=== PATIENT | male | born 1940 | race Caucasian/White ===

== ENCOUNTER 2019-02-22 19:07 | Inpatient (IN) | payer OTHER ==
--- NOTE | 2019-02-22 19:24 | EDPHY ---
H & P Stated Complaint: COUGH 1 MONTH, NOW SOB, SENT FROM [facility] [place] ON O2 Time Seen by Provider: 02/22/19 19:23 HPI/ROS: CHIEF COMPLAINT: Shortness of breath, cough HISTORY OF PRESENT ILLNESS: The patient is a 78 y/o male with a history of atrial fibrillation, hypertension, diabetes who arrives complaining of worsening cough and shortness of breath over the last few days. He's had a persistent cough for the last 7-8 weeks. He went on a golf trip to [place] 4 days ago and returned last night. While there his cough worsened and he developed associated shortness of breath for the first time. The shortness of breath was distressing to the point that he stayed up all night to focus on breathing. These symptoms have persisted since returning home. He denies chest pain at any point. No fever, abdominal pain, urinary symptoms, vomiting, diarrhea, orthopnea. No history of CA. He went to urgent care for the shortness of breath this evening and was referred to the ED due to concern for hypoxemia. He reports while sitting in the waiting room at urgent care his SpO2 was briefly at 88% on one finger and 92% on the other finger so they sent him to the ED with a bottle of oxygen. He received a flu vaccination this season and is up-to-date on his Pneumovax. REVIEW OF SYSTEMS: A ten system review of systems was performed and is negative with the exception of the items mentioned in the HPI. Past medical history: 1. Atrial fibrillation - Eliquis 2. Hypertension 3. Diabetes - metformin, glipizide. A1C 6.8 1.5 weeks ago. 4. Kidney cancer - treated surgically 5. Saphenous vein clot 8-9 years ago Past surgical history: 1. Right partial nephrectomy 2. Appendectomy 3. Tonsillectomy Family history: Noncontributory Social history: at bedside. Lives in [place]. Retired. PCP: Dr. Nash. Snow Removal/Plowing: Dr. Marcial. General Appearance: Alert. Vital signs reviewed. Blood pressure 132/110, heart rate 117 at triage. Eyes: Pupils equal and round, no conjunctival injection, no discharge. Anicteric. ENT, Mouth: Mucous membranes are moist, no oropharyngeal erythema or edema. Neck: No lymphadenopathy, supple. Respiratory: Lungs are clear to auscultation; no wheezes, rales, or rhonchi. Cardiovascular: Irregularly irregular rate and rhythm; no murmur, rub, or gallop. Gastrointestinal: Abdomen is soft and nontender, no masses or organomegaly. Skin: Warm and dry, no rashes on exposed skin, normal color. Back: Nontender to palpation over the thoracolumbar spine. No CVAT. Extremities: Trace lower extremity edema bilaterally, no calf tenderness or swelling. Neurological: Alert and oriented. Moving all four extremities easily and equally. Psychiatric: Normal affect. - Personal History Current Tetanus/Diphtheria Vaccine: Yes Current Tetanus Diphtheria and Acellular Pertussis (TDAP): Yes - Medical/Surgical History Hx Asthma: No Hx Chronic Respiratory Disease: No Hx Diabetes: Yes Hx Cardiac Disease: Yes Hx Renal Disease: Yes Hx Cirrhosis: No Hx Alcoholism: No Hx HIV/AIDS: No Hx Splenectomy or Spleen Trauma: No Other PMH: HTN, D.M. A-FIB, KIDNEY REMOVED FOR CA - Social History Smoking Status: Never smoked Constitutional: Initial Vital Signs Temperature (C) 36.5 C 02/22/19 19:11 Heart Rate 117 H 02/22/19 19:11 Respiratory Rate 18 02/22/19 19:11 Blood Pressure 132/110 H 02/22/19 19:11 O2 Sat (%) 95 02/22/19 19:11 O2 Delivery Mode Room Air Allergies/Adverse Reactions: Penicillins Allergy (Verified 02/22/19 19:15) Home Medications: Medication Instructions Recorded Eplerenone [Inspra 25 MG (*)] 50 mg PO DAILY 10/05/16 Ezetimibe [Zetia 10 MG (*)] 10 mg PO Q2D 10/05/16 Hydrochlorothiazide [HCTZ (*)] 25 mg PO DAILY 10/05/16 Lisinopril [Zestril 20 mg (*)] 20 mg PO BID 10/05/16 Metoprolol Succinate [Toprol Xl] 50 mg PO BID 10/05/16 Omeprazole 20 mg PO DAILY 10/05/16 Rosuvastatin Calcium [Crestor 20mg 5 mg PO Q2D 10/05/16 (*)] Tamsulosin HCl [Flomax 0.4 MG (*)] 0.4 mg PO DAILY@1830 10/05/16 Verapamil ER [Calan SR/ER 240MG 240 mg PO HS 12/08/16 (*)] metFORMIN HCL [Metformin HCl] 1,000 mg PO BIDMEAL 10/05/16 Apixaban [Eliquis] 5 mg PO BID 02/22/19 glipiZIDE [Glipizide] 2.5 mg PO BIDMEAL 02/22/19 Medical Decision Making - Diagnostics EKG Interpretation: 12 lead EKG is interpreted in [place] by emergency department physician. Imaging: I viewed and interpreted images myself ED Course/Re-evaluation: Plan for IV, labs, UA, chest x-ray, EKG. Normal SpO2 on room air. Patient was ambulated with pulse ox in place and pulse oximetry remained in the low 90s. Patient's two view chest x-ray suggestive of airways disease. There is no infiltrate and I do not see evidence of pulmonary edema. He he has a BNP of 1710--not excessively high for his age. He has trace peripheral edema. This is not an overall picture of congestive heart failure. However he reports symptoms suggestive of heart failure, including PND and weight gain. I have not found evidence of pneumonia. Flu negative. However, the patient continues to be tachypneic with respiratory rate in the mid 20s to 30. His heart rate has been 100-120, atrial fibrillation. He tells me that he normally has a heart rate of 60-70 at home. He knows that he is in chronic atrial fibrillation. He takes his Eliquis and his verapamil as prescribed. He might need better rate control. He has had blood pressures in the 130s over 110-120. He has not yet had his evening medications, one of which is lisinopril which will be given to him here. I am trying to obtain a complete list of his medications and dosages. He states that his blood pressure is usually under better control than this, but he does not check it daily. 20 care troponin is normal. His EKG shows atrial fibrillation with an episode of unsustained V-tach. He is not having chest pain. It is not my impression that this is ischemia. Blood pressure improved during his stay in the emergency department. He is being admitted to the hospital for further evaluation, treatment, and cardiac monitoring. Differential Diagnosis: Shortness of breath including but not limited to pulmonary infectious process, COPD, asthma, pulmonary embolus and congestive heart failure. - Data Points Laboratory Results: Laboratory Results 02/22/19 19:50 02/22/19 19:50 Medications Given: Apixaban (Eliquis) 5 mg PO BID [facility] Stop: 08/25/19 08:59 Last Admin: 02/27/19 08:02 Dose: 5 mg Benzonatate (Tessalon Pearles) 100 mg PO TID PRN PRN Reason: Cough, Mild Stop: 08/21/19 23:23 Last Admin: 02/26/19 17:10 Dose: 100 mg Cetirizine HCl (Zyrtec) 10 mg PO HS [facility] Stop: 08/22/19 20:59 Last Admin: 02/26/19 19:55 Dose: 10 mg Clopidogrel Bisulfate (Plavix) 75 mg PO DAILY [facility] Stop: 08/25/19 08:59 Last Admin: 02/27/19 08:01 Dose: 75 mg Ezetimibe (Zetia) 10 mg PO Q2D [facility] Stop: 08/24/19 08:59 Last Admin: 02/27/19 08:01 Dose: 10 mg Eplerenone (Inspra) 50 mg PO DAILY [facility] Stop: 08/22/19 08:59 Last Admin: 02/27/19 08:11 Dose: 50 mg Fluticasone Propionate (Flonase Nasal [place]) 1 sprays [place] BID [facility] Stop: 08/21/19 23:29 Last Admin: 02/26/19 19:59 Dose: 1 spray Furosemide (Lasix) 20 mg PO DAILY [facility] Stop: 08/26/19 08:59 Last Admin: 02/27/19 08:02 Dose: 20 mg Glipizide (Glucotrol) 2.5 mg PO BIDMEAL [facility] Stop: 08/22/19 07:59 Last Admin: 02/27/19 08:01 Dose: 2.5 mg Guaifenesin (Mucinex) 600 mg PO BID PRN PRN Reason: Cough, Mild Stop: 08/22/19 08:59 Last Admin: 02/26/19 17:15 Dose: 600 mg Insulin Human Lispro (Humalog Lispro) 0 unit SC TIDMEAL [facility] PRN Reason: Protocol Stop: 08/23/19 11:59 Last Admin: 02/27/19 08:12 Dose: 1 units Metoprolol Succinate (Toprol Xl) 100 mg PO BID [facility] Stop: 08/25/19 20:59 Last Admin: 02/27/19 08:01 Dose: 100 mg Pantoprazole Sodium (Protonix) 40 mg PO DAILY [facility] Stop: 08/22/19 08:59 Last Admin: 02/27/19 08:01 Dose: 40 mg Rosuvastatin Calcium (Crestor) 5 mg PO Q2D [facility] Stop: 08/23/19 08:59 Last Admin: 02/26/19 08:41 Dose: 5 mg Tamsulosin HCl (Flomax) 0.4 mg PO DAILY@1830 [facility] Stop: 08/22/19 18:29 Last Admin: 02/26/19 17:10 Dose: 0.4 mg Discontinued Medications Apixaban (Eliquis) 5 mg PO BID [facility] Stop: 08/21/19 23:14 Last Admin: 02/24/19 09:49 Dose: Not Given Aspirin Buffered (Aspirin Ec) 325 mg PO ONCALL ONE Stop: 02/25/19 06:01 Last Admin: 02/25/19 09:02 Dose: 325 mg Clopidogrel Bisulfate (Plavix) 600 mg PO ONCE ONE Stop: 02/25/19 14:16 Last Admin: 02/25/19 14:42 Dose: 600 mg Diazepam (Valium) 5 mg PO ONCALL ONE Stop: 02/25/19 06:01 Last Admin: 02/25/19 15:34 Dose: Not Given Diphenhydramine HCl (Benadryl) 25 mg PO ONCALL ONE Stop: 02/25/19 06:01 Last Admin: 02/25/19 15:32 Dose: Not Given Famotidine (Pepcid) 20 mg PO ONCALL ONE Stop: 02/25/19 06:01 Last Admin: 02/25/19 15:32 Dose: Not Given Furosemide (Lasix Injection) 40 mg IVP ONCE ONE Stop: 02/23/19 13:41 Last Admin: 02/23/19 14:04 Dose: 40 mg Furosemide (Lasix Injection) 20 mg IVP ONCE ONE Stop: 02/26/19 08:06 Last Admin: 02/26/19 08:37 Dose: 20 mg Hydrochlorothiazide (Hydrochlorothiazide) 25 mg PO DAILY [facility] Stop: 08/22/19 08:59 Last Admin: 02/23/19 07:46 Dose: 25 mg Sodium Chloride (Ns) 1,000 mls @ 0 mls/hr IV ONCALL ONE PRN Reason: TKO Stop: 02/25/19 06:01 Last Admin: 02/25/19 15:33 Dose: Not Given Sodium Chloride (Ns) 1,000 mls @ 30 mls/hr IV ONCALL ONE Stop: 02/26/19 15:19 Last Admin: 02/25/19 15:33 Dose: Not Given Lisinopril (Zestril) 20 mg PO EDNOW ONE Stop: 02/22/19 21:26 Last Admin: 02/22/19 21:40 Dose: 20 mg Lisinopril (Zestril) 20 mg PO BID [facility] Stop: 08/22/19 08:59 Last Admin: 02/23/19 07:46 Dose: 20 mg Lisinopril (Zestril) 20 mg PO DAILY [facility] Stop: 08/23/19 08:59 Last Admin: 02/24/19 09:50 Dose: Not Given Metformin HCl (Glucophage) 1,000 mg PO BIDMEAL [facility] Stop: 08/22/19 07:59 Last Admin: 02/24/19 09:49 Dose: Not Given Metoprolol Succinate (Toprol Xl) 50 mg PO BID [facility] Stop: 08/21/19 23:14 Last Admin: 02/25/19 09:02 Dose: 50 mg Metoprolol Succinate (Toprol Xl) 50 mg PO BID [facility] Stop: 08/22/19 20:59 Last Admin: 02/24/19 01:35 Dose: Not Given Metoprolol Succinate (Toprol Xl) 75 mg PO BID [facility] Stop: 08/24/19 20:59 Last Admin: 02/26/19 08:39 Dose: 75 mg Metoprolol Tartrate (Lopressor Injection) 5 mg IVP ONCE ONE Stop: 02/26/19 13:11 Last Admin: 02/26/19 13:19 Dose: 5 mg Metoprolol Tartrate (Lopressor Injection) 5 mg IVP ONCE ONE Stop: 02/26/19 14:32 Last Admin: 02/26/19 14:43 Dose: 5 mg Metoprolol Tartrate (Lopressor) 25 mg PO ONCE ONE Stop: 02/26/19 14:32 Last Admin: 02/26/19 14:43 Dose: 25 mg Metoprolol Tartrate (Lopressor Injection) 5 mg IVP ONCE ONE Stop: 02/27/19 08:01 Last Admin: 02/27/19 08:11 Dose: 5 mg Potassium Chloride (Klor-Con) 20 meq PO ONCE ONE Stop: 02/27/19 07:39 Last Admin: 02/27/19 08:00 Dose: 20 meq Tamsulosin HCl (Flomax) 0.4 mg PO HS [facility] Stop: 08/21/19 23:14 Last Admin: 02/24/19 01:35 Dose: Not Given Verapamil HCl (Calan Sr) 240 mg PO HS [facility] Stop: 08/21/19 23:14 Last Admin: 02/22/19 23:33 Dose: 240 mg Verapamil HCl (Calan Sr) 240 mg PO HS [facility] Stop: 08/22/19 20:59 Last Admin: 02/23/19 20:39 Dose: 240 mg Verapamil HCl (Calan Sr) 120 mg PO [facility] Stop: 08/23/19 20:59 Last Admin: 02/25/19 20:34 Dose: 120 mg Point of Care Test Results: Chemistry 02/22/19 19:55 POC Troponin I 0.01 ng/mL ng/mL (0.00-0.08) Departure - Departure Disposition: [facility] Inpatient Acute Clinical Impression: Shortness of breath Atrial fibrillation Qualifiers: Atrial fibrillation type: chronic Qualified Code(s): I48.2 - Chronic atrial fibrillation Hypertension Qualifiers: Hypertension type: essential hypertension Qualified Code(s): I10 - Essential ( primary) hypertension Condition: Fair Report Scribed for: Italia Cook Report Scribed by: Vika Sotelo Date of Report: 02/22/19 Time of Report: 19:27 Physician Review and Approval Statement: 02/22/19 19:24 Portions of this note were transcribed by the biomedical engineering professor. I, Dr. Italia Cook, personally performed the history, physical exam, and medical decision- making; and confirmed the accuracy of the information in the transcribed note.
[2019-02-22 20:13] LABS: PLATELET COUNT 181 10^3/uL (150-400)
[2019-02-22 20:21] LABS: INR 1.11 (0.83-1.16); PROTIME(PATIENT) 13.9 SEC (12.0-15.0)
[2019-02-22] MEDS ORDERED: LISINOPRIL 20 MG TAB PO ONE (21:25)
[2019-02-22] MEDS ORDERED: ACETAMINOPHEN 325 MG TAB PO PRN (21:28)
[2019-02-22] MEDS ORDERED: ONDANSETRON 4 MG/2 ML VIAL IVP PRN (21:28)
[2019-02-22] MEDS ORDERED: ONDANSETRON DISINTEGRATING 4 MG TAB PO PRN (21:28)
[2019-02-22] MEDS ORDERED: ALBUTEROL 3 ML DEYVIAL IH PRN (22:34)
[2019-02-22] MEDS ORDERED: VERAPAMIL ER 240 MG TAB PO SCH (23:15)
[2019-02-22] MEDS: APIXABAN 5 MG TAB PO SCH (23:33)
[2019-02-22] MEDS: METOPROLOL SUCCINATE XR 50 MG TAB PO SCH (23:33)
[2019-02-22] MEDS: TAMSULOSIN HCL 0.4 MG CAP PO SCH (23:33)
[2019-02-22] MEDS: FLUTICASONE NASAL 120 SPRAYS/16 GM MDI EACHNARE SCH (23:49)
--- NOTE | 2019-02-23 00:11 | PDGENHP ---
History and Physical - Chief Complaint Shortness of breath, cough - History of Present Illness Source-patient provides history and appears reliable. EMR reviewed and case discussed with accepting hospitalist. HPI - Patient is a pleasant 78M with pmhx significant for chronic atrial fibrillation on eliquis, HTN, HLD, BPH, DM II who presents to the ED today from Urgent care with complaints of SOB and cough. Patient reports a 7-8 week history of nonproductive cough and some shortness of air. Patient denies any chest pain, palpitations or pleuritic chest pain. He does note some postnasal drainage and "rattling" occasionally in his chest. He denies any fevers/ chills. no sore throat. No sick contacts. he notes occasional hiccups that resolve quickly but occurs up to 3 times daily. Patient reports a similar history 1 year ago for which his PCP treated him with anti-tussive medications. He was also given an inhaler of some kind but reports he developed some throat numbness. Patient reports some concern for approximately 10 lb weight gain since the beginning of the year. He denies any LE edema, no orthopnea, no PND. He notes his abdomen appears to be persistently larger. He also notes declined activity over the course of the winter due to some shoulder pain for which he has been undergoing physical therapy. He has increasing activity with golfing and just recently returned from [place] and notes he noticed this weight gain. At the urgent care clinic patient was noted to have a nonsustained episode of hypoxia to 88% on RA but did improve to > 90%. patient referred to ED for further evaluation. History Information - Allergies/Home Medication List Allergies/Adverse Reactions: Penicillins Allergy (Verified 02/22/19 19:15) Home Medications: Eplerenone [Inspra 25 MG (*)] 50 mg PO DAILY 10/05/16 [Last Taken 02/22/19] Ezetimibe [Zetia 10 MG (*)] 10 mg PO Q2D 10/05/16 [Last Taken Unknown] Hydrochlorothiazide [HCTZ (*)] 25 mg PO DAILY 10/05/16 [Last Taken 02/22/19] Lisinopril [Zestril 20 mg (*)] 20 mg PO BID 10/05/16 [Last Taken 02/22/19 09:00] Metoprolol Succinate [Toprol Xl] 50 mg PO BID 10/05/16 [Last Taken 02/22/19 09: 00] Omeprazole 20 mg PO DAILY 10/05/16 [Last Taken 02/22/19] Rosuvastatin Calcium [Crestor 20mg (*)] 5 mg PO Q2D 10/05/16 [Last Taken Unknown ] Tamsulosin HCl [Flomax 0.4 MG (*)] 0.4 mg PO DAILY@1830 10/05/16 [Last Taken ] Verapamil ER [Calan SR/ER 240MG (*)] 240 mg PO HS 10/05/16 [Last Taken 02/21/19] metFORMIN HCL [Metformin HCl] 1,000 mg PO BIDMEAL 10/05/16 [Last Taken 02/22/19 09:00] Apixaban [Eliquis] 5 mg PO BID 02/22/19 [Last Taken 02/22/19 09:00] glipiZIDE [Glipizide] 2.5 mg PO BIDMEAL 02/22/19 [Last Taken 02/22/19 09:00] I have personally reviewed and updated: family history, medical history, social history, surgical history - Past Medical History Additional medical history: HTN, HLD, chronic afib on eliquis, DM II, kidney cancer s/p partial nephrectomy. squamous cell carcinoma scalp, ear, legs. saphenous vein clot 2010. - Surgical History Additional surgical history: partial nephrectomy on right, T&A - Family History Additional family history: father, brother with CAD. brother with CVA. mother - cancer. - Social History Smoking Status: Never smoked Alcohol Use: None Drug Use: None Additional social history: Patient is and lives with . Review of Systems Review of Systems: ROS: 10pt was reviewed & negative except for what was stated in HPI & below Constitutional: Reports: no symptoms, other (weight gain over winter 10 lbs). Denies: chills, fever EENMT: Reports: other (+ postnasal gtt.). Denies: mouth swelling, nose congestion, sore throat Cardiac: Reports: no symptoms. Denies: edema, lightheadedness, palpitations Respiratory: Reports: cough, shortness of breath. Denies: wheezing Gastrointestinal: Reports: no symptoms Genitourinary: Reports: no symptoms Muscolosketal: Reports: joint pain (left shoulder pain) Skin: Reports: lesions (left ear post excision. ). Denies: rash Neurological: Reports: no symptoms Hematologic/Lymphatic: Reports: no symptoms Physical Exam Physical Exam: Selected Entries 02/22/19 19:11 Blood Pressure Automatic Method Heart Rate 117 H Respiratory 18 Rate O2 Sat (%) 95 Temperature (C) 36.5 C Blood Pressure 132/110 H Mean Arterial 117 H Pressure (MAP) O2 Delivery Room Air Mode Temperature Oral Source Temp Pulse Resp BP Pulse Ox 37.0 C 99 20 147/99 H 94 02/22/19 23:08 02/22/19 23:08 02/22/19 23:08 02/22/19 23:08 02/22/19 23:08 Constitutional: no apparent distress, appears nourished, other (NAD. pleasant adult male is laying reclined in bed awake. at bedside. patient in good spirits.) Eyes: PERRL, anicteric sclera, EOMI, No scleral injection Ears, Nose, Mouth, Throat: moist mucous membranes, other (no nasal discharge. no oropharangeal erythema or exudates. ), No poor dentition Cardiovascular: irregularly irregular, tachycardia, No edema Peripheral Pulses: 2+: dorsalis-pedis (R), dorsalis-pedis (L) Respiratory: no respiratory distress, no rales or rhonchi, clear to auscultation , reduced air movement (diminished air movement bibasilar L>R. ), other ( ocassional cough.), No expiratory wheeze, No inspiratory crackles, No respiratory distress Gastrointestinal: normoactive bowel sounds, soft, non-tender abdomen, no palpable masses, ascites, other (obese abdomen), No guarding, No rebound Genitourinary: no bladder tenderness, No parker in urethra Skin: warm, normal color, no rashes or abrasions, No rash Musculoskeletal: full muscle strength, no muscle tenderness, pain with ROM ( left shoulder), No generalized weakness Neurologic: AAOx3, sensation intact bilaterally, other (grossly nonfocal. ), No facial droop Psychiatric: interacting appropriately, not anxious, not encephalopathic, thought process linear Lab Data & Imaging Review 02/22/19 19:50 02/22/19 19:50 WBC 8.41 10^3/uL (3.80-9.50) 02/22/19 19:50 RBC 5.00 10^6/uL (4.40-6.38) 02/22/19 19:50 Hgb 14.5 g/dL (13.7-17.5) 02/22/19 19:50 Hct 43.9 % (40.0-51.0) 02/22/19 19:50 MCV 87.8 fL (81.5-99.8) 02/22/19 19:50 MCH 29.0 pg (27.9-34.1) 02/22/19 19:50 MCHC 33.0 g/dL (32.4-36.7) 02/22/19 19:50 RDW 15.0 % (11.5-15.2) 02/22/19 19:50 Plt Count 181 10^3/uL (150-400) 02/22/19 19:50 MPV 11.1 fL (8.7-11.7) 02/22/19 19:50 Neut % (Auto) 80.7 % (39.3-74.2) H 02/22/19 19:50 Lymph % (Auto) 6.7 % (15.0-45.0) L 02/22/19 19:50 Schley % (Auto) 9.0 % (4.5-13.0) 02/22/19 19:50 Eos % (Auto) 3.0 % (0.6-7.6) 02/22/19 19:50 Baso % (Auto) 0.2 % (0.3-1.7) L 02/22/19 19:50 Nucleat RBC Rel Count 0.0 % (0.0-0.2) 02/22/19 19:50 Absolute Neuts (auto) 6.79 10^3/uL (1.70-6.50) H 02/22/19 19:50 Absolute Lymphs (auto) 0.56 10^3/uL (1.00-3.00) L 02/22/19 19:50 Absolute Monos (auto) 0.76 10^3/uL (0.30-0.80) 02/22/19 19:50 Absolute Eos (auto) 0.25 10^3/uL (0.03-0.40) 02/22/19 19:50 Absolute Basos (auto) 0.02 10^3/uL (0.02-0.10) 02/22/19 19:50 Absolute Nucleated RBC 0.00 10^3/uL (0-0.01) 02/22/19 19:50 Immature Gran % 0.4 % (0.0-1.1) 02/22/19 19:50 Immature Gran # 0.03 10^3/uL (0.00-0.10) 02/22/19 19:50 RBC/WBC/PLT Morphology TNP 02/22/19 19:50 Platelet Estimate TNP 02/22/19 19:50 PT 13.9 SEC (12.0-15.0) 02/22/19 19:50 INR 1.11 (0.83-1.16) 02/22/19 19:50 APTT 33.5 SEC (23.0-38.0) 02/22/19 19:50 Sodium 137 mEq/L (135-145) 02/22/19 19:50 Potassium 3.7 mEq/L (3.5-5.2) 02/22/19 19:50 Chloride 103 mEq/L (97-110) 02/22/19 19:50 Carbon Dioxide 22 mEq/l (22-31) 02/22/19 19:50 Anion Gap 12 mEq/L (6-14) 02/22/19 19:50 BUN 26 mg/dL (7-23) H 02/22/19 19:50 Creatinine 1.4 mg/dL (0.7-1.3) H 02/22/19 19:50 Estimated GFR 49 02/22/19 19:50 Glucose 119 mg/dL (70-100) H 02/22/19 19:50 Calcium 9.7 mg/dL (8.5-10.4) 02/22/19 19:50 POC Troponin I 0.01 ng/mL (0.00-0.08) 02/22/19 19:55 NT-Pro-B Natriuret Pep 1710 pg/mL (0-450) H 02/22/19 19:50 Nasal Influenza A PCR NEGATIVE FOR FLU A (NEGATIVE) 02/22/19 19:50 Nasal Influenza B PCR NEGATIVE FOR FLU B (NEGATIVE) 02/22/19 19:50 Imaging Review: PA and Lateral Chest Clinical Indications: Shortness of breath and cough x2 months in a 78-year- old male Comparison: August 2013. Findings: No focal pulmonary consolidation is identified. Peribronchial thickening is noted. Minimal basilar opacities are identified which are probably atelectasis. There is hyperexpansion with flattening of the hemidiaphragms noted. The heart size and pulmonary vascularity are normal. Pleural surfaces and bony thorax are negative for acute abnormality. Impression: Findings consistent with airways disease with no superimposed acute abnormality identified. Dictated By: Kevin Douglas MD Visualized and Interpreted Chest x-ray results: Yes Chest X-Ray results: no infiltrate, other (atelectasis, peribronchiolar thickening. ) Visualized and Interpreted EKG results: Yes EKG additional interpertation: atrial fibrillation, LBBB, q waves inferior leads. Assessment & Plan Assessment: Patient is a pleasant 78M with pmhx significant for chronic atrial fibrillation on eliquis, HTN, HLD, BPH, DM II who presents to the ED today from Urgent care with complaints of SOB and cough. #SOB - patient currently on room air without additional episodes of hypoxia. Likely related to atelectasis and bronchitis. rapid flu negative but no evidence of infectious process. exertional RA challenge before discharge and tonight's plan as noted below. suspect related to postnasal gtt and bronchitis. Flu negative. Patient reports he is concerned for possible CHF. no orthopnea or LE edema. Patient notes a 10 lb weight gain but clarified this has been gradual over winter months and in the last several weeks up to 5 lbs. Patient did recently return to elevation. after discussion with patient will obtain echocardiogram in AM. He denies any chest pain and notes that he had a nuclear stress test [address] Marcial. bnp slightly elevated however pt in Afib with HR 100s-130s and BPs slightly elevated. resume patient home mediations for BP and rate control. #Cough - evidence of airway disease with bronchiolar thickening and atelectasis present. Given patient history and similar presentation last year concern for postnasal gtt and allergic rhinitis. Patient will have anti-tussives available prn, flonase and zyrtec has been ordered. Patient notes he had throat numbness/ tightening with an "inhaler" will try to review patient outpatient chart and update allergy list. #hypoxia - currently saturating well on RA. plan as noted above. continuous pulse ox. incentive spirometry. #chronic Atrial fibrillation - patient HR slightly elevated. He denies any chest pain. #benign essential Hypertension chronic - DBP particularly elevated. patient's home medications will be resumed now including metoprolol, verapamil. Chronic medical issues #DM II - resume glipizide and metformin. #HLD - continue statin #BPH - continue flomax #CKD stage 3 - at baseline. #GERD - continue ppi FEN - SLIV. tolerating PO well. electrolytes adequate. cardiac diet. PPX - on eliquis. COR - FULL Dispo - Patient admitted to observation status pending echo and reassessment in AM.
[2019-02-23] MEDS: glipiZIDE 5 MG TAB PO SCH ×2 (07:40→17:29)
[2019-02-23] MEDS: PANTOPRAZOLE SODIUM 40 MG TAB PO SCH (07:40)
[2019-02-23] MEDS: metFORMIN HCL 500 MG TAB PO SCH ×2 (07:40→17:29)
[2019-02-23] MEDS: APIXABAN 5 MG TAB PO SCH ×2 (07:40→20:39)
[2019-02-23] MEDS: METOPROLOL SUCCINATE XR 50 MG TAB PO SCH ×2 (07:45→20:38)
[2019-02-23] MEDS: EPLERENONE 25 MG TAB PO SCH (07:46)
[2019-02-23] MEDS: FLUTICASONE NASAL 120 SPRAYS/16 GM MDI EACHNARE SCH ×2 (07:47→20:39)
[2019-02-23] MEDS: guaiFENesin 600 MG TAB.ER PO PRN ×2 (07:57→20:51)
[2019-02-23] MEDS: BENZONATATE 100 MG CAP PO PRN ×2 (07:57→20:52)
[2019-02-23] MEDS ORDERED: HYDROCHLOROTHIAZIDE 25 MG TAB PO SCH (09:00)
[2019-02-23] MEDS ORDERED: LISINOPRIL 20 MG TAB PO SCH (09:00)
--- NOTE | 2019-02-23 11:30 | ECHO ---
[email or web address] [address] [address] Main: [phone] Echocardiography Examination Transthoracic Name: YOHANA BECKMAN MR#: [id number] Study Date: 02/23/2019 Study Time: 09:42 AM Date of : 1940 Age: 78 year(s) Height: 180.3 cm (71 in.) Weight: 89.81 kg (198 lb.) BSA: 2.1 m2 Gender: Male Examination: Echo Contrast: Image Quality: Adequate Rhythm: Heart Rate: BP: 117 mmHg/75 mmHg Indication: Shortness of breath, Atrial Fibrillation Procedure Staff Referring Physician: Lawyer Real Estate: Nilda Barnes [facility] Reading Physician: Thierry Pinto MD Requesting Provider: Ordering Physician: Scarlett Crawford Indication: Shortness of breath, Atrial Fibrillation Measurements Chambers AV/MV Label Value Normal Value Label Value Normal Value LVOTd 2.1 cm (1.9cm - 2.1cm) AV PGmax 7 mmHg LVOT VTI 14.8 cm (18cm - 22cm) AV PGmean 5 mmHg LVDd, 2D 4.8 cm (4.2cm - 5.9cm) AV Vmax 1.29 m/s LVDs, 2D 3.9 cm (2.1cm - 4cm) HAIR (VTI) 1.9 cm2 IVSd, 2D 1.2 cm (0.6cm - 1.1cm) MV E Vmax 1.03 m/s LVPWd, 2D 1.2 cm (0.6cm - 1cm) MV DT 169 ms LVEF, 2D 40 % (54% - 74%) MV PHT 0.05 s LVOT PGmean 2 mmHg MVA PHT 4.7 cm2 LVOT Vmean 0.71 m/s MR Reg. Volume 75 ml RVDd, 2D 3.9 cm (1.9cm - 3.8cm) MR Vmax 4.51 m/s LA Volume, BP 124 ml (18ml - 58ml) MR VTI 138 cm LADs, 2D 4.5 cm (3cm - 4cm) MR (ERO) 0.54 cm2 LAESV index, BP 59 ml/m2 MR PISA Radius 1 cm RA Area 25.5 cm2 MR PISA Alias V. 38.5 cm/s Additional Vessels MV PHT 47 ms Label Value Normal Value TV/PV AoAsc 3.5 cm Label Value Normal Value AoRoot, 2D 3.6 cm (1.4cm - 2.6cm) RA Pressure 15 mmHg IVC 2.4 cm (1.2cm - 2.3cm) RVSP 47 mmHg Patient: YOHANA BECKMAN Study Date: 02/23/2019 Page 1 of 3 09:42 AM TR Pmax 32 mmHg TR Vmax 2.82 m/s PV PGmax 2 mmHg PV Vmax, Caliper 0.71 m/s (0.6m/s - 0.9m/s) Conclusions Left Ventricle: Mildly reduced systolic left ventricular function. EF range is estimated at 45 % - 50 %. Mild global hypokinesis. Echogenicity seen in LV most likely consistent with prominent trabeculation; cannot rule out apical thrombus (consider Definity contrasted echo study for better definition). Mitral Valve: Moderate to severe mitral regurgitation. Tricuspid Valve: Pulmonary artery pressure is mildly increased. Findings Left Ventricle: Left ventricle is normal in size. Mildly reduced systolic left ventricular function. EF range is estimated at 45 % - 50 %. There is mild concentric left ventricular hypertrophy. Mild global hypokinesis. Echogenicity seen in LV most likely consistent with prominent trabeculation; cannot rule out apical thrombus (consider Definity contrasted echo study for better definition). Right Ventricle: Normal size right ventricle. Right ventricular systolic function is normal. Left Atrium: The left atrium is severely dilated. Right Atrium: The right atrium is moderately dilated. Mitral Valve: Mitral valve appears structurally normal. Moderate to severe mitral regurgitation. No mitral valve stenosis. Aortic Valve: Aortic leaflets are structurally normal. Trivial aortic regurgitation is present. There is no aortic stenosis. Aortic leaflets exhibit calcification. Tricuspid Valve: Tricuspid valve leaflets are structurally normal. Moderate tricuspid regurgitation. No tricuspid valve stenosis. Right Ventricular systolic pressure is measured at 47 mmHg. Pulmonary artery pressure is mildly increased. Pulmonic Valve: Pulmonic leaflets are normal in appearance. Mild pulmonic valve regurgitation is present. Aorta: The aortic root size in 2D measures 3.6 cm. The ascending aorta measures 3.5 cm. Aorta Measurements AoRoot, 2D is 3.6 cm. IVC: The inferior vena cava is mildly dilated. Exam Details Procedure Ordered: Echo Procedure Status: Routine study Image Quality: Adequate Facility Location: Bedside Patient: YOHANA BECKMAN Study Date: 02/23/2019 Page 2 of 3 09:42 AM (No Signature Object) Patient: YOHANA BECKMAN Study Date: 02/23/2019 Page 3 of 3 09:42 AM [id number]
--- NOTE | 2019-02-23 11:40 | ASMTCMCOM ---
CM Note CM Note Notes: Reviewed chart. Pt admitted for new onset of shortness of breath and worsening cough x 7-8 weeks. History includes afib, HTN, DM type II, kidney CA with partial nephrectomy, saphenous vein blood clot, BPH, HLD, squamous cell carcinoma. Pt is and lives with his in [place]. He is retired and plays golf 4 days/week. Per morning rounds, several diagnostic tests are pending. Discharge needs remain unclear at this time. Anticipate pt will likely discharge home independently with family support when medically stable. CM will continue to follow for any potential needs. Discharge Plan: To be determined, likely independent Date Signed: 02/23/2019 11:13 AM Electronically Signed By:June Meza RN
[2019-02-23] MEDS ORDERED: PERFLUTREN LIPID MICROSPHERES 1.1 MG/ML VIAL IV ONE (12:30)
--- NOTE | 2019-02-23 13:12 | ECHO ---
[email or web address] [address] [address] Main: [phone] Echocardiography Examination Transthoracic Name: YOHANA BECKMAN MR#: [id number] Study Date: 02/23/2019 Study Time: 12:38 PM Date of : 1940 Age: 78 year(s) Height: ( ) Weight: ( ) BSA: Gender: Male Examination: Limited Echo with Definity Contrast: 0.330 mg I.V. dose of Definity was administered Image Quality: Adequate Rhythm: Heart Rate: BP: 129 mmHg/92 mmHg Indication: Eval LV Procedure Staff Referring Physician: Offset Printer: Nilda Barnes RDCS Reading Physician: Thierry Pinto MD Requesting Provider: Ordering Physician: Nilda Olea Indication: Eval LV Conclusions Left Ventricle: Mildly reduced systolic left ventricular function. No evidence of LV thrombus. Findings Left Ventricle: Mildly reduced systolic left ventricular function. EF range is estimated at 45 % - 50 %. No evidence of LV thrombus. Exam Details Procedure Ordered: Limited Echo with Definity Procedure Status: Routine study Image Quality: Adequate Contrast: 0.330 mg I.V. dose of Definity was administered Intravenous contrast was administered to opacify the left ventricle Contrast Lot#: [id number] Facility Location: Bedside Patient: YOHANA BECKMAN Study Date: 02/23/2019 Page 1 of 2 12:38 PM (No Signature Object) Patient: YOHANA BECKMAN Study Date: 02/23/2019 Page 2 of 2 12:38 PM [id number]
[2019-02-23] MEDS ORDERED: FUROSEMIDE 40 MG/4 ML VIAL IVP ONE (13:40)
--- NOTE | 2019-02-23 13:48 | HOSPPROG ---
Hospitalist Progress Note Assessment/Plan: # SOB - likely d/t MR and mild sCHF - resp pcr pending # sCHF with acute exacerbation - etiology CAD vs viral CM vs a-fib vs MR - lasix 40 IV x 1 - already on BB (could change to coreg), lisino and eplerenone - cards consult for further w/u # mod-severe MR - cards consult - may need CHRISTINA - diuresis as above # htn - hold hctz with lasix - hold pm dose of lisino # a-fib - cont eliquis, metop and verapamil Subjective: still SOB when lying flat Objective: Vital Signs Temp Pulse Resp BP Pulse Ox 36.4 C 72 16 129/92 H 97 02/23/19 11:15 02/23/19 11:15 02/23/19 11:15 02/23/19 11:15 02/23/19 11:15 02/22/19 02/23/19 02/24/19 05:59 05:59 05:59 Intake Total 500 Balance 500 PT 13.9 SEC (12.0-15.0) 02/22/19 19:50 INR 1.11 (0.83-1.16) 02/22/19 19:50 chart reviewed discussed with dr hunt - Physical Exam Constitutional: no apparent distress, appears nourished Cardiovascular: regular rate and rhythym, no murmur, rub, or gallop Respiratory: no respiratory distress, no rales or rhonchi Gastrointestinal: soft, non-tender abdomen, no palpable masses, No guarding, No rebound, No distension ICD10 Worksheet Patient Problems: Problems Problem Status Onset Atrial flutter by electrocardiogram Acute Atrial fibrillation Acute Hypertension Acute
--- NOTE | 2019-02-23 16:08 | PDMN ---
Medical Necessity Medical necessity: MCG: Heart failure M190 A-2 days: Dyspnea (above baseline ) that persists despite emergency department and observation care treatment. 78yo M with acute exacerbation -SOB at rest, likely r/t mod-sever MG noted on echo cardiology consult pend. additional Lasix and further monitoring needed. pt with afib-, elevated BNP(1710) , HTN, (132/110) HR 117,. CXR show findings consistent with airway disease. status changed to INPT 02/23/19 for ongoing med nec care > 2 MN req further monitoring and tx of above.
[2019-02-23] MEDS: TAMSULOSIN HCL 0.4 MG CAP PO SCH (17:31)
[2019-02-23] MEDS: CETIRIZINE 10 MG TAB PO SCH (20:38)
[2019-02-23] MEDS ORDERED: VERAPAMIL ER 240 MG TAB PO SCH (21:00)
[2019-02-23] MEDS ORDERED: METOPROLOL SUCCINATE XR 50 MG TAB PO SCH (21:00)
--- NOTE | 2019-02-23 23:47 | CPEKG ---
Test Reason : OPEN Blood Pressure : / mmHG Vent. Rate : 113 BPM Atrial Rate : 108 BPM P-R Int : 086 ms QRS Dur : 132 ms QT Int : 373 ms P-R-T Axes : 000 -47 067 degrees QTc Int : 512 ms Atrial fibrillation Ventricular tachycardia, unsustained Aberrant conduction of SV complex(es) Left bundle branch block Confirmed by Arik Solis ([id number]) on 02/23/2019 11:47:35 PM Referred By: ARIK SOLIS Confirmed By:Arik Solis
[2019-02-24] MEDS: TAMSULOSIN HCL 0.4 MG CAP PO SCH ×2 (01:35→18:16)
[2019-02-24 08:11] LABS: PLATELET COUNT 171 10^3/uL (150-400)
[2019-02-24] MEDS ORDERED: LISINOPRIL 20 MG TAB PO SCH (09:00)
[2019-02-24] MEDS ORDERED: D50W 25 GM/50 ML SYR IVP PRN (09:47)
[2019-02-24] MEDS: metFORMIN HCL 500 MG TAB PO SCH (09:49)
[2019-02-24] MEDS: APIXABAN 5 MG TAB PO SCH (09:49)
--- NOTE | 2019-02-24 09:49 | HOSPPROG ---
Hospitalist Progress Note Assessment/Plan: # sCHF with acute exacerbation - etiology CAD vs viral CM vs a-fib vs MR - already on BB (could change to coreg), eplerenone - hold lisino today # mod-severe MR - likely CHRISTINA tomorrow, possible RHC/LHC # MARLEN vs CKD - will hold lisino today with slightly low BPs # htn - hold hctz today - hold lisino, cont verapimil, metop # a-fib - hold eliquis, cont metop and verapamil # DM2 - hold metformin as he may get contrast, start SSI Subjective: breathing better today after lasix Objective: Vital Signs Temp Pulse Resp BP Pulse Ox 36.7 C 70 16 118/78 96 02/24/19 07:38 02/24/19 07:38 02/24/19 07:38 02/24/19 07:38 02/24/19 07:38 Microbiology 02/23/19 Unknown Respiratory Panel (PCR) - Final Nasal, Sinus - Swab No Organism Detected By Pcr Laboratory Results 02/24/19 07:40 02/24/19 07:40 02/23/19 02/24/19 02/25/19 05:59 05:59 05:59 Intake Total 200 Output Total 3975 Balance -3775 PT 13.9 SEC (12.0-15.0) 02/22/19 19:50 INR 1.11 (0.83-1.16) 02/22/19 19:50 tele personally reviewed discussed with Mayo S - Physical Exam Constitutional: no apparent distress, appears nourished Cardiovascular: no murmur, rub, or gallop, irregularly irregular Respiratory: no respiratory distress, no rales or rhonchi, clear to auscultation Gastrointestinal: soft, non-tender abdomen, no palpable masses, No guarding, No rebound ICD10 Worksheet Patient Problems: Problems Problem Status Onset Atrial flutter by electrocardiogram Acute Atrial fibrillation Acute Hypertension Acute
[2019-02-24] MEDS ORDERED: TEMAZEPAM 15 MG CAP PO PRN (10:40)
[2019-02-24] MEDS: glipiZIDE 5 MG TAB PO SCH ×2 (10:55→18:18)
[2019-02-24] MEDS: ROSUVASTATIN CALCIUM 10 MG TAB PO SCH (10:56)
[2019-02-24] MEDS: EPLERENONE 25 MG TAB PO SCH (10:56)
[2019-02-24] MEDS: PANTOPRAZOLE SODIUM 40 MG TAB PO SCH (10:57)
[2019-02-24] MEDS: METOPROLOL SUCCINATE XR 50 MG TAB PO SCH ×2 (10:58→21:15)
[2019-02-24] MEDS: FLUTICASONE NASAL 120 SPRAYS/16 GM MDI EACHNARE SCH ×2 (10:59→21:15)
--- NOTE | 2019-02-24 13:16 | GCON ---
[f rep st] CONSULTATION CARDIOLOGY CONSULTATION INDICATION FOR CARDIOLOGY CONSULTATION: Worsening mitral regurgitation, shortness of breath, reduction in ejection fraction. REQUESTING PHYSICIAN FOR CONSULTATION: Dr. Shaikh of Hospitalist services. HISTORY OF PRESENT ILLNESS: The patient is a 78-year-old male who is well known to our practice. He is followed by Dr. Alfredo Marcial. He has significant history that includes permanent atrial fibrillation, hypertension, hyperlipidemia , and diabetes. The patient reports he had been feeling well until approximately 2 months ago, in which he started having a nonproductive cough. He is reporting no other significant symptoms with this, and had not noticed much. He did mention he did see his PCP who tried him on some over-the- counter medications, which seemed to help. He does state approximately 7 days ago, reporting while in [place] for a golf trip, he did note that his cough was much worse, and later that evening, he found that he became more short of breath, especially with exertion. He was able to come back [place] , and reporting by Sunday night his coughing and shortness of breath had worsened so much, he felt he needed to be further evaluated in came to [facility] Emergency Department for evaluation. He reports no fevers, chills, or night sweats. He denies of any chest pain or pressure. Upon arrival, an electrocardiogram was done which noted atrial fibrillation with rapid ventricular response, ventricular rate 113 BPM. He was also noted to have left bundle branch block. A chest x-ray was also done which was consistent with airway disease with no superimposed acute abnormalities identified. Laboratories were drawn, which noted elevated BNP of 1710. He was negative for influenza A and B. The patient did report orthopnea, and was treated with IV Lasix. He did undergo echocardiogram the following day in which he was noted to have a mildly reduced EF of 45% to 50% with mild global hypokinesis. There was a question about potential thrombus, and Definity study was done which ruled that out. He was also noted to have moderate to severe MR, moderate TR with an RVSP elevation of 47 mmHg. As of today, he reports his shortness of breath has significantly improved with diuretic therapy. He denies any chest pain or pressure. On continuous desk monitor, his heart rate is better controlled, with ventricular rates running in the 70s and 80s. He was noted at night to have bradycardia down to 40 beats per minute, which he was asymptomatic for. He denies any lightheadedness, palpitations, near-syncope or syncopal events. Reporting no symptoms suggestive of TIA or CVA. Besides cough , no recent fevers, chills, or night sweats. Patient with significant cardiac risk factors that include age, hypertension, hyperlipidemia, diabetes, and family history of coronary artery disease, reporting Father with first cardiac event in his early 50s. PAST MEDICAL HISTORY: Includes hypertension, hyperlipidemia , permanent atrial fibrillation, type 2 diabetes, history of kidney cancer status post partial nephrectomy, chronic renal insufficiency with baseline creatinine at 1.3, squamous cell carcinoma of the scalp, ears, legs. Saphenous vein clot in 2010. SURGICAL HISTORY: Includes partial nephrectomy on the right, tonsils and adenoids, and previous attempted CHRISTINA cardioversions. FAMILY HISTORY: Positive for coronary artery disease for both brother and Father, reporting Father had his first event when he was in his 50s. 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 He is and lives with his . He reports no smoking. Denies any alcohol use. Denies any illicit drug use. ALLERGIES: Penicillin. HOME MEDICATIONS: Glipizide 2.5 mg p.o. twice daily. Lisinopril 20 mg p.o. twice daily. Verapamil ER 240 mg p.o. at bedtime. Rosuvastatin 5 mg p.o. every 2 days. Zetia 10 mg p.o. every 2 days. Flomax 0.4 mg p.o. daily. Hydrochlorothiazide 25 mg p.o. daily. Inspra 50 mg p.o. daily. Omeprazole 20 mg p.o. daily. Metoprolol succinate 50 mg p.o. twice daily. Metformin 1000 mg p.o. twice daily. Eliquis 5 mg p.o. twice daily. REVIEW OF SYSTEMS: A 10-point review of systems done on patient, all negative except as mentioned above. PHYSICAL EXAMINATION: GENERAL APPEARANCE: Medium built, well-groomed, male. He is alert and oriented to person, place, time, and situation. Appears to be under no acute distress. CURRENT VITAL SIGNS: blood pressure of 118/78, heart rate of 70 saturating 96% on room air, respirations 16 , temperature 36.7 degrees Celsius. HEENT: Head is normocephalic. Lips and tongue are pink and moist with no signs of cyanosis. Conjunctivae pink. NECK: Trachea is midline, +2 carotid pulses bilateral. No auscultated bruits, no jugular vein distention. RESPIRATORY: Lungs are clear to auscultation. No rhonchi, rales or wheezes. No accessory muscle use, no intercostal muscle retraction noted. CARDIAC: Regular rate, irregular rhythm, S1, S2, 2/6 systolic murmur noted along the left sternal border. ABDOMEN: Soft, nontender , bowel sounds x4 quadrants. No organomegaly. No palpable masses. SKIN: [place] , warm, dry, no cyanosis, no clubbing, no peripheral edema. VASCULAR: +2 carotids bilateral, +2 radials bilateral, +2 posterior tibial pulses bilateral. LABORATORY STUDIES: Today show WBC of 5.03, hemoglobin 14.4, hematocrit 43.4, platelet count 171. INR of 1.1. Sodium 138, potassium 3.6, chloride 101, CO2 of 25, BUN 29, creatinine 1.6, glucose 143, calcium 9.4. On admission, patient was noted to have a troponin of 0.01, ProBNP of 1710. ASSESSMENT AND PLAN: 1. Shortness of breath: Patient reporting increased shortness of breath with mild hypoxia. In urgent care, initial saturation of 88%, has been greater than 90 since hospital admission. Noted to have elevated BNP, significant improvement in symptoms with IV diuresis. He that he had a 10-pound weight gain over 2 months, with no significant fast weight gain. Does reports mild abdominal bloating, which has also improved with diuresis. At this time, recent echocardiogram showing reduction in the EF from previously at 60% down to 45% to 50%, with no wall motion abnormalities, and elevated RVSP of 47 mmHg on admission. At this time, due to his increasing creatinine, his diuretics have been held today, blood pressure is well controlled, concerning and we will plan for further workup for his mitral valve, and with his multiple cardiac risk factors and reduced ejection fraction, we will also plan on doing an ischemic workup. 2. Severe mitral regurgitation: The patient's most recent CHRISTINA was September of 2016, in which he was noted to have mild MR; most recent transthoracic showing moderate to severe MR. With worsening MR, we will plan for him to undergo CHRISTINA, will plan to make him n.p.o. after midnight tonight, and perform study tomorrow with Dr. Harris. Potentially if the severity of his regurgitation is severe, consideration for evaluation by CT Surgery for either repair or replace or potential for mitral clip. 3. Cardiomyopathy: Patient with most recent CHRISTINA in September 2016 showing ejection fraction of 60% with no wall motion abnormality, now noting a decreased LVEF down to 45% to 50%, mild global hypokinesis, but no wall motion abnormalities. He appears fairly euvolemic at this time. Due to his multiple cardiac risk factors, symptoms of shortness of breath, and new left bundle branch block, is felt best that he be further evaluated for cardiac ischemia. We will plan for him to undergo a left heart catheterization, along with the right heart just for evaluation of his pulmonary pressures. We will plan to do this tomorrow morning. Until then, he will continue on home dose of metoprolol succinate, due to his elevated creatinine, his lisinopril has been held, but he remains on home dose. Inspra. We will follow closely, with plans on resuming his lisinopril. 1. Hypertension: Patient with noted history of hypertension, blood pressure appears to be well managed at this time, we will adjust as necessary. Continue to monitor. 2. Hyperlipidemia: The patient has been resumed on home statin therapy, plan fasting lipid panel in a.m. before cath. 3. Permanent atrial fibrillation: Patient is noted to have multiple cardioversions in the past and has failed. In the past he has been asymptomatic to his atrial fibrillation, initially noted to be RVR with a touch of systolic heart failure, improved with diuretic therapy, continue on metoprolol succinate. Due to his bradycardia noted mornings with rates down to the 40s, we are going to reduce his p.m. dose of verapamil. We will continue to monitor. He is currently on Eliquis for full anticoagulation, noting having a CHADS-VASc score of 4, currently on hold in preparation for heart catheterization in a.m. We will plan on resuming anticoagulation post procedure. 4. Diabetes: Defer treatment to the Hospitalist services. Thank you for this consultation. We will be glad to follow along with you. /[id number]/MODL MTDD
[2019-02-24] MEDS: INSULIN LISPRO 100 UNIT/ML SC SCH ×2 (15:37→18:16)
[2019-02-24] MEDS: guaiFENesin 600 MG TAB.ER PO PRN (21:15)
[2019-02-24] MEDS: CETIRIZINE 10 MG TAB PO SCH (21:15)
[2019-02-24] MEDS: VERAPAMIL ER 120 MG TAB PO SCH (21:15)
[2019-02-24] MEDS: BENZONATATE 100 MG CAP PO PRN (21:15)
[2019-02-25 04:08] LABS: PLATELET COUNT 184 10^3/uL (150-400)
[2019-02-25 04:22] LABS: INR 1.2 (0.83-1.16); PROTIME(PATIENT) 14.7 SEC (12.0-15.0)
[2019-02-25] MEDS ORDERED: NS 1,000 ML IV ONE ×2 (06:00)
[2019-02-25] MEDS ORDERED: FAMOTIDINE 20 MG TAB PO ONE (06:00)
[2019-02-25] MEDS ORDERED: DIAZEPAM 5 MG TAB PO ONE (06:00)
[2019-02-25] MEDS ORDERED: diphenhydrAMINE 25 MG CAP PO ONE (06:00)
[2019-02-25] MEDS ORDERED: ASPIRIN EC 325 MG TAB PO ONE (06:00)
[2019-02-25] MEDS: METOPROLOL SUCCINATE XR 50 MG TAB PO SCH ×2 (09:02→20:32)
[2019-02-25] MEDS ORDERED: LIDOCAINE 1% 5 ML SDV ONE (10:38)
[2019-02-25] MEDS ORDERED: PROPOFOL 200 MG/20 ML VIAL ONE (10:38)
[2019-02-25] MEDS ORDERED: SUCCINYLCHOLINE CHLORIDE 200 MG/10 ML SYR IVP ONE (10:39)
--- NOTE | 2019-02-25 10:48 | PDANEPAE ---
ANE Past Medical History - Cardiovascular History Hx Hypertension: Yes Hx Arrhythmias: No Hx Chest Pain: No Hx Coronary Artery / Peripheral Vascular Disease: No Hx CHF / Valvular Disease: No Hx Palpitations: No - Pulmonary History Hx COPD: No Hx Asthma/Reactive Airway Disease: No Hx Recent Upper Respiratory Infection: No Hx Oxygen in Use at Home: Yes O2 in Use at Home (L/minute): 2 Hx Sleep Apnea: No - Neurologic History Hx Cerebrovascular Accident: No Hx Seizures: No Hx Dementia: No - Endocrine History Hx Diabetes: Yes Endocrine History Comment: dm2 x4 years - Renal History Hx Renal Disorders: Yes Renal History Comment: 2009 partial r nephrectomt - Liver History Hx Hepatic Disorders: No - Neurological & Psychiatric Hx Hx Neurological and Psychiatric Disorders: No - Cancer History Hx Cancer: Yes - Congenital Disorder History Hx Congenital Disorders: No - GI History Hx Gastrointestinal Disorders: No Gastrointestinal History Comment: gerd- controlled - Chronic Pain History Chronic Pain: No - Surgical History Prior Surgeries: tonsilectomy 5 yo,. 2010 partial r nephrectomy. oral impants x 3 most recent 12/14 ANE Review of Systems Review of Systems: ANE Patient History - Allergies Allergies/Adverse Reactions: Penicillins Allergy (Verified 02/22/19 19:15) - Home Medications Home Medications: Eplerenone [Inspra 25 MG (*)] 50 mg PO DAILY 10/05/16 [Last Taken 02/22/19] Ezetimibe [Zetia 10 MG (*)] 10 mg PO Q2D 10/05/16 [Last Taken Unknown] Hydrochlorothiazide [HCTZ (*)] 25 mg PO DAILY 10/05/16 [Last Taken 02/22/19] Lisinopril [Zestril 20 mg (*)] 20 mg PO BID 10/05/16 [Last Taken 02/22/19 09:00] Metoprolol Succinate [Toprol Xl] 50 mg PO BID 10/05/16 [Last Taken 02/22/19 09: 00] Omeprazole 20 mg PO DAILY 10/05/16 [Last Taken 02/22/19] Rosuvastatin Calcium [Crestor 20mg (*)] 5 mg PO Q2D 10/05/16 [Last Taken Unknown ] Tamsulosin HCl [Flomax 0.4 MG (*)] 0.4 mg PO DAILY@1830 10/05/16 [Last Taken ] Verapamil ER [Calan SR/ER 240MG (*)] 240 mg PO HS 10/05/16 [Last Taken 02/21/19] metFORMIN HCL [Metformin HCl] 1,000 mg PO BIDMEAL 10/05/16 [Last Taken 02/22/19 09:00] Apixaban [Eliquis] 5 mg PO BID 02/22/19 [Last Taken 02/22/19 09:00] glipiZIDE [Glipizide] 2.5 mg PO BIDMEAL 02/22/19 [Last Taken 02/22/19 09:00] - Smoking Hx Smoking Status: Never smoked - Alcohol Use Alcohol Use: None ANE Labs/Vital Signs - Labs Result Diagrams: 02/25/19 03:00 02/25/19 03:00 - Vital Signs Blood Pressure: 135/95 Heart Rate: 95 Respiratory Rate: 18 O2 Sat (%): 97 Height: 180.34 cm Weight: 85.638 kg ANE Physical Exam - Airway Neck exam: decreased ROM Mallampati Score: Class 2 Mouth exam: normal dental/mouth exam - Pulmonary Pulmonary: no respiratory distress - Cardiovascular Cardiovascular: irregularly irregular - ASA Status ASA Status: III ANE Anesthesia Plan Anesthesia Plan: general endotracheal anesthesia, GA with mask
--- NOTE | 2019-02-25 10:48 | PDPROPOC ---
Sedation Plan of Care Sedation Plan of Care: mental status noted, patient educated of risks, benefits , alternatives, patient can tolerate sedation ASA Classification: ASA 3 Planned drugs: other Mallampati Score: Class 3 Mallampati Reference Image: Patient passed 3-3-2 rule?: Yes
--- NOTE | 2019-02-25 10:48 | PDHPUP ---
History & Physical Update H&P update statement: This history and physical update is based on an assessment of the patient which was completed after admission or registration (within 24 hours), but prior to the surgery/procedure. H&P update: H&P reviewed & patient examined, no change in patient's condition since H&P completed
--- NOTE | 2019-02-25 11:08 | PDCARTEE ---
CAR CHRISTINA CAR CHRISTINA: see full CHRISTINA report. Findings: 1)Mildly reduced LVEF 40-45%. 2)Severe left atrial enlargement noted. 3)No thrombus in LV or clots in any of four cardiac chambers or FARHANA. PW velocity in FARHANA 30cm/sec. 4)No ASD or PFO by color dopper. Negative IV bubble study. 5)Moderate to moderately severe MR without MV prolapse. 6)Trivial TR and PI noted. 7)Normal size ascending thoracic aorta without dissection flap or atheroma. Complications: none.
--- NOTE | 2019-02-25 11:09 | POSTANESTH ---
Post Anesthetic Evaluation Cardiovascular Status: Similar to Pre-Op Cond Respiratory Status: Similar to Pre-op Cond. Level of Consciousness/Mental Status: Mildly Sleepy, Arousable Pain Control: Adequate, Prn Tx Ordered Nausea/Vomiting Control: Adequate, Prn Tx Ordered Complications Possibly Related to Anesthesia: None Noted
--- NOTE | 2019-02-25 13:20 | ECHO ---
[email or web address] [id number] Main: [phone] Echocardiography Examination Transesophageal Name: YOHANA BECKMAN MR#: [id number] Study Date: 02/25/2019 Study Time: 10:38 AM Date of : 1940 Age: 78 year(s) Height: 180.3 cm (71 in.) Weight: 84.82 kg (187 lb.) BSA: 2.05 m2 Gender: Male Examination: CHRISTINA Contrast: Image Quality: Adequate Rhythm: Heart Rate: BP: / Indication: severe MR Procedure Staff Referring Physician: Gta: Nilda Barnes SAMARA Reading Physician: Jimmy Harris MD Requesting Provider: Ordering Physician: Mayo Reynaga NP Indication: severe MR Acute complication: None Measurements Additional Vessels AV/MV Label Value Normal Value Label Value Normal Value AoAsc 3.2 cm MR PISA Radius 0.5 cm MR PISA Alias V. 37.1 cm/s Conclusions Left Ventricle: CHRISTINA CONCLUSIONS:1)Mildly reduced LV systolic function with a LVEF of 40-45% with focal distal septum and apex hypokinesis. Prominent trabeculations but no LV thrombus seen.2)Severe left atrial enlargement noted.3)No clot or thrombus noted in any of four cardiac chambers or left atrial appendage. PW doppler velocity of FARHANA is 30cm/sec.4)Trileaflet aortic valve with trivial AI and no .5)Moderate to severe central MR with no MV prolapse or MAC or torn chordae.PISA 0.5.6)Trivial TR and PI noted.7)No ASD or PFO by color dopper. Negative IV bubble study for abnormal intracardiac shunting.8)Normal size ascending thoracic aorta (3.2cm) with atheroma or dissection flap.Complications: none. Findings Left Ventricle: CHRISTINA CONCLUSIONS: Patient: YOHANA BECKMAN Study Date: 02/25/2019 Page 1 of 2 10:38 AM 1)Mildly reduced LV systolic function with a LVEF of 40-45% with focal distal septum and apex hypokinesis. Prominent trabeculations but no LV thrombus seen. 2)Severe left atrial enlargement noted. 3)No clot or thrombus noted in any of four cardiac chambers or left atrial appendage. PW doppler velocity of FARHANA is 30cm/sec. 4)Trileaflet aortic valve with trivial AI and no . 5)Moderate to severe central MR with no MV prolapse or MAC or torn chordae.PISA 0.5. 6)Trivial TR and PI noted. 7)No ASD or PFO by color dopper. Negative IV bubble study for abnormal intracardiac shunting. 8)Normal size ascending thoracic aorta (3.2cm) with atheroma or dissection flap. Complications: none.Prominent trabeculation noted in left ventricle. Left Atrium: The left atrium is severely dilated. Left Atrium Appendage: Normal PW-Doppler flow pattern. Good color flow doppler in the left atrial appendage. No thrombus is identified. IAS: An agitated saline study was performed and was negative for intracardiac shunting. Mitral Valve: Mitral valve appears structurally normal. Moderate to severe mitral regurgitation. Aortic Valve: Aortic leaflets are structurally normal. Trivial aortic regurgitation is present. Tricuspid Valve: Tricuspid valve leaflets are structurally normal. Trivial tricuspid regurgitation. Pulmonic Valve: Pulmonic leaflets are structurally normal. Trivial pulmonic valve regurgitation is present. Aorta: The ascending aorta measures 3.2 cm. Ascending aorta is normal in size. Pericardium: No pericardial effusion. Exam Details Procedure Ordered: CHRISTINA Procedure Status: Routine study Image Quality: Adequate Consent: Risks, alternatives of procedure explained to patient, informed consent obtained Probe Insertion: Attending internal controls consultant Facility Location: Bedside (No Signature Object) Patient: YOHANA BECKMAN Study Date: 02/25/2019 Page 2 of 2 10:38 AM [id number]
[2019-02-25] MEDS ORDERED: LIDOCAINE 1% 300 MG/30 ML SDV ONE (13:53)
[2019-02-25] MEDS ORDERED: fentaNYL 100 MCG/2 ML INJ ONE (13:53)
[2019-02-25] MEDS ORDERED: IOPAMIDOL (ISOVUE-370) 150 ML BTL IV ONE ×2 (13:54→16:07)
[2019-02-25] MEDS ORDERED: MIDAZOLAM 2 MG/2 ML VIAL ONE (13:54)
[2019-02-25] MEDS ORDERED: CLOPIDOGREL BISULFATE 75 MG TAB PO ONE (14:15)
--- NOTE | 2019-02-25 14:54 | PDPROPOC ---
Sedation Plan of Care Sedation Plan of Care: mental status noted, patient educated of risks, benefits , alternatives, patient can tolerate sedation ASA Classification: ASA 2 Planned drugs: fentanyl, midazolam Mallampati Score: Class 2 Mallampati Reference Image: Patient passed 3-3-2 rule?: Yes
--- NOTE | 2019-02-25 15:03 | HOSPPROG ---
Hospitalist Progress Note Assessment/Plan: # sCHF with acute exacerbation - etiology CAD vs viral CM vs a-fib vs MR - distal septum and apical hypokinesis on CHRISTINA - already on BB (could change to coreg), eplerenone - hold lisino with contrast load # WMAs - LHC today # mod-severe MR - CHRISTINA similar in appearance - RHC/LHC today # MARLEN vs CKD - will hold lisino today with slightly low BPs - s/p partial nephrectomy for renal cell cancer - Dr Morales will minimize contrast # htn - hold hctz today - hold lisino, cont verapimil, metop # a-fib - hold eliquis, cont metop and verapamil # DM2 - hold metformin with contrast, start SSI Subjective: seen in CVC, prior to RHC/LHC; no complaints Objective: Vital Signs Temp Pulse Resp BP Pulse Ox 36.6 C 89 12 134/99 H 98 02/25/19 08:10 02/25/19 14:01 02/25/19 14:01 02/25/19 14:01 02/25/19 14:01 Laboratory Results 02/25/19 03:00 02/25/19 03:00 02/24/19 02/25/19 02/26/19 05:59 05:59 05:59 Intake Total 200 975 Output Total 3975 2300 400 Balance -3775 -1325 -400 PT 14.7 SEC (12.0-15.0) 02/25/19 03:00 INR 1.20 (0.83-1.16) H 02/25/19 03:00 CHRISTINA reviewed discussed with Dr Morales - he will minimize contrast - Physical Exam Constitutional: no apparent distress, appears nourished Cardiovascular: regular rate and rhythym, no murmur, rub, or gallop Respiratory: no respiratory distress, no rales or rhonchi, clear to auscultation Gastrointestinal: soft, non-tender abdomen, no palpable masses, No guarding, No rebound, No distension ICD10 Worksheet Patient Problems: Problems Problem Status Onset Atrial flutter by electrocardiogram Acute Atrial fibrillation Acute Hypertension Acute
[2019-02-25] MEDS: INSULIN LISPRO 100 UNIT/ML SC SCH ×3 (15:32→20:32)
[2019-02-25] MEDS: glipiZIDE 5 MG TAB PO SCH ×2 (15:32→20:35)
[2019-02-25] MEDS: FLUTICASONE NASAL 120 SPRAYS/16 GM MDI EACHNARE SCH ×2 (15:32→20:34)
[2019-02-25] MEDS ORDERED: ADENOSINE 90 MG/30 ML VIAL IV ONE (15:49)
[2019-02-25] MEDS ORDERED: HEPARIN 10,000 UNIT/10 ML MDV (1,000 UNIT/ML) ONE (16:07)
--- NOTE | 2019-02-25 19:39 | PDCARPN ---
Cardiology Progress Note Chief Complaint: Reports improvement in shortness of breath. Assessment/Plan: Assessment: 78-year-old male with known history of permanent atrial fibrillation, hypertension, hyperlipidemia, diabetes chronic renal insufficiency (past history of partial nephrectomy baseline creatinine 1.3). Admitted on 02/23/2018 for increased shortness of breath. Echocardiogram done on 02/23/2019 noting mildly reduced LV systolic function with EF of 45-50% with mild concentric LVH, mild global hypokinesis, no thrombus confirmed by definity in LV. Normal RV size and function, LA severely dilated, RA moderately dilated, moderate to severe MR, trivial AI, moderate TR, elevated RVSP of 47 mm Hg. Elevated BNP on admission of 1710. Treated with IV Lasix with moderate reduction of symptoms. 02/25/2019: Underwent CHRISTINA today which noted mildly reduced LVEF of 40-45% with distal septum and apex hypokinesis. Severe LA enlargement, no thrombus. Trivial AI, moderate to severe MR with no mitral valve prolapse, mac, or torn chordae. Trivial TR and PI, no ST or PFO. Patient then underwent coronary angiogram, 90% mid diagonal lesion confirmed flow limitation with FFR. PCI performed with SAMANTHA implantation. Laboratories today showing creatinine at 1.5. Plan: 1. Systolic heart failure with acute exacerbation: EF noted to be 40-45% by CHRISTINA with distal septum and apical hypokinesis. Improved with diuresis. Elevated creatinine, diuretics on hold for right now. Repeat BMP in a.m.. 2. Cardiomyopathy: Significant reduction in previous EF from 60 % in 2016 down to 40-45% during this hospitalization. Continue on beta-marci of metoprolol succinate, Henry inhibitor on hold due to renal insufficiency, will resume when renal function returns back to baseline. 3. Moderate to severe MR: No significant structural mitral valvular disease per CHRISTINA. Question of chronic atrial fibrillation with poor rate control is contributing. Plan to discuss with patient's primary church secretary, Dr. Marcial in a.m.. 4. Permanent atrial fibrillation: Decreased verapamil due to bradycardia on admission. Now having episodes of RVR with exertion. Increase metoprolol succinate to 75 mg p.o. Twice daily. Continue on current dose of verapamil. Currently anticoagulation is on hold due to recent arterial stick for coronary angiogram, plan on resuming Eliquis in a.m.. 5. Coronary artery disease disease: Noted wall motion abnormality on CHRISTINA. PCI of diagonal, started on clopidogrel. 6. Hyperlipidemia: Patient is statin intolerant in the past, continue on maximum intolerant therapy doses of rosuvastatin and Zetia. 7. Chronic kidney disease: Creatinine 1.5 today. Hold diuretic, hold HENRY- inhibitor time being. 8. Hypertension: Well controlled at current time, continue metoprolol. 02/25/19 19:37 Subjective: Denies of any chest pain or pressure. Reports SOB has improved. Denies of any orthopnea. Reports no PND, edema, lightheadedness, near-syncope or syncopal events. Reviewed/Discussed With: hospitalist (Dr Becerra), other (Dr Harris and Dr Morales ) Objective: Vital Signs (8 Hrs) Pulse Resp BP Pulse Ox 02/25/19 14:01 89 12 134/99 H 98 02/25/19 12:56 100 18 122/90 H 96 Intake/Output (24 Hrs) 02/24/19 02/25/19 02/26/19 05:59 05:59 05:59 Intake Total 200 975 Output Total 3975 2300 700 Balance -3775 -1325 -700 Intake: Oral (ml) 200 975 Output: Urine (ml) 3975 2300 700 Urinal 3975 2300 700 Other: Weight 85.638 kg 85.638 kg Number of Voids Toilet 2 Urinal 3 1 Result Diagrams: 02/25/19 03:00 02/26/19 03:08 Cardiac Labs: Cardiac Lab Results (72 Hrs) 02/24/19 07:40 Troponin I < 0.012 - Physical Exam Constitutional: WDWN, no apparent distress Ears, Nose, Mouth, Throat: moist mucous membranes Cardiovascular: no rubs, systolic murmur (2/6 left sternal border), irregularly irregular (AFib), jugular vein distention (4-5 cm above sternal notch at a 45 degree angle), pulses symmetric bilat, No carotid bruit Peripheral Pulses: 1+: dorsalis-pedis (R), dorsalis-pedis (L), 2+: carotid (R), carotid (L) Respiratory: clear to auscultate bilat, no crackles, no wheezes Gastrointestinal: normoactive bowel sounds Skin: warm, no edema Neurologic: AAOx3 Psychiatric: cooperative, interactive, following commands ICD10 Worksheet Patient Problems: Problems Problem Status Onset Atrial fibrillation Acute Hypertension Acute Atrial flutter by electrocardiogram Acute
[2019-02-25] MEDS: CETIRIZINE 10 MG TAB PO SCH (20:34)
[2019-02-25] MEDS: VERAPAMIL ER 120 MG TAB PO SCH (20:34)
[2019-02-25] MEDS: EZETIMIBE 10 MG TAB PO SCH (20:38)
[2019-02-25] MEDS: EPLERENONE 25 MG TAB PO SCH (20:38)
[2019-02-25] MEDS: PANTOPRAZOLE SODIUM 40 MG TAB PO SCH (20:39)
[2019-02-25] MEDS: TAMSULOSIN HCL 0.4 MG CAP PO SCH (20:41)
--- NOTE | 2019-02-25 22:10 | CPIP ---
[f rep st] INVASIVE CARDIAC PROCEDURE DATE OF PROCEDURE: 02/25/2019 CHIEF COMPLAINT: Shortness of breath. PROCEDURE: 1. Nonselective right groin sheathogram. 2. 7-[place] sheath to the right common femoral vein. 3. Right heart catheterization with [place] catheter. 4. Bilateral coronary angiography. 5. Left heart catheterization. 6. Fractional flow reserve of left anterior descending. 7. Fractional flow reserve of diagonal 1 artery. 8. Percutaneous coronary intervention of diagonal 1 artery utilizing Synergy 2.25 x 16 mm drug-eluti ng stent. INDICATION: Briefly, this is a 78-year-old male with history of worsening shortness of breath who wa s admitted for heart failure, was found to have mildly severe mitral regurgitation with a reduced eje ction fraction. The patient was consented for right and left heart catheterization for further evalu ation. DESCRIPTION OF PROCEDURE: After informed consent, the patient was brought to [facility] where right groin was prepped and draped in a sterile fashion using lidocaine. A short 6-[place]izen [place] sh eath right in the right femoral artery verified angiographically. Through the 7-[place] sheath right femoral vein. [place] catheter was advanced. Wedge pressure mean of 13, A-wave 17, V-wave 14, PA pressure systolic 30, diastolic 18, mean of 25. RV pressure systolic 31, diastolic 3, end of 8. RA pressure mean of 8, A-wave of 8, V-wave 10. Cardiac output 6.0, Baldomero index 2.9. AO sat 93%. PA sat 72%. [place] catheter was removed. A JL4 catheter was then advanced to the left coronary artery. Left coronary artery showed normal left main. 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 There was a marginal one coming off with mild plaque disease and a marginal 2 artery, which had mild plaque disease as well. The LAD had what appeared t o be like a napkin ring area of haziness in its proximal aspect narrowing the lumen to at least 30% t o 40%. The distal LAD appeared to be healthy and free of disease. There was a medium size diagonal 1 artery coming off with what appeared to be at least an 80% to 90% diseased in the proximal segment. After these images were obtained, the JR4 catheter was removed. The JR4 catheter was then advanced to the right coronary artery. The right coronary artery showed normal ostial RCA. In the prox RCA, there was what appeared to be a 40% to 50% lesion. Mid RCA had more aneurysmal disease and another lesion approximately 20% to 30%. Distal RPD and RPLS appeared to be healthy and free of disease. Af ter these images were obtained, the JR4 catheter was removed over the 0.035 wire. A pigtail was adva nced to the left ventricle. EDP is approximately 20 mmHg. No ventriculogram was obtained secondary to the patient's underlying creatinine. No pullback gradient between the LV and aorta. Pigtail cath eter removed over the 0.035 wire. INTERVENTIONAL REPORT: At this time, we decided to interrogate the hazy proximal aspect of the LAD a nd the high-grade diagonal artery lesion further with an FFR wire. The patient was administered 8000 heparin IV as well as p.o. Utilizing EBU 3.5 guide catheter the left coronary artery was selectively engaged. An FFR wire was zeroed in the aorta and then placed into the mid LAD. FFR was commenced. The FFR started from 1.01, reduced to 0.93 with no further reduction with adenosine infu bella. After 2 minutes, the wire was then pulled back and placed into the diagonal 1 artery with a hi gh-grade lesion and FFR immediately reduced to 0.77 without any adenosine infusion. Given the reduct ion of the FFR to 0.77 without any adenosine, we decided to proceed with intervention of this lesion. Predilatation commenced with a 2.0 x 12 mm balloon at 10 atmospheres. After this was performed, we then proceeded with stenting with a 2.25 x 16 mm Synergy drug-eluting stent deployed at 11 atmospher es. After deployment, angiography obtained which showed excellent patency of the stented area with n o dissection or perforation. This was verified in orthogonal views. The wire was removed. The guid e catheter was removed. The right groin was closed with 6-[place] Angio-Seal. The 7-[place] sheath wa s sutured in place to be removed by manual pressure. Patient tolerated the procedure well with no co mplications. IMPRESSION: 1. High-grade diagonal 1 artery disease treated with a Synergy 2.25 x 60 mm drug-eluting stent. 2. Moderate disease in the right coronary artery, nonlimiting. 3. Mild disease in the left anterior descending verified to be noncritical by FFR. 4. Normal pulmonic pressures. PLAN: The patient will remain on baby aspirin and Plavix for at least 1 years' time. Continue diure sis as needed. /[id number]/MODL
[2019-02-26] MEDS ORDERED: FUROSEMIDE 20 MG/2 ML VIAL IVP ONE (08:05)
[2019-02-26] MEDS: EPLERENONE 25 MG TAB PO SCH (08:38)
[2019-02-26] MEDS: METOPROLOL SUCCINATE XR 50 MG TAB PO SCH (08:39)
[2019-02-26] MEDS: CLOPIDOGREL BISULFATE 75 MG TAB PO SCH (08:40)
[2019-02-26] MEDS: glipiZIDE 5 MG TAB PO SCH ×2 (08:41→17:10)
[2019-02-26] MEDS: ROSUVASTATIN CALCIUM 10 MG TAB PO SCH (08:41)
[2019-02-26] MEDS: APIXABAN 5 MG TAB PO SCH ×2 (08:41→19:55)
[2019-02-26] MEDS: INSULIN LISPRO 100 UNIT/ML SC SCH ×3 (08:42→17:12)
[2019-02-26] MEDS: PANTOPRAZOLE SODIUM 40 MG TAB PO SCH (08:42)
[2019-02-26] MEDS: FLUTICASONE NASAL 120 SPRAYS/16 GM MDI EACHNARE SCH ×2 (08:43→19:59)
[2019-02-26] MEDS ORDERED: METOPROLOL TARTRATE 5 MG/5 ML INJ IVP ONE ×2 (13:10→14:31)
--- NOTE | 2019-02-26 13:13 | HOSPPROG ---
Hospitalist Progress Note Assessment/Plan: The patient is a 78-year-old male with PMH CHF, CKD, AFib who was admitted for acute systolic CHF exacerbation. This patient is new to me. Reviewed patient's chart/records for this visit. ASSESSMENT/PLAN: Acute systolic CHF exacerbation, resolving Moderate to severe MR AF HTN -Discussed w/ Cardiology who DC'd dilt, increased metoprolol, and recommends to switch from ACEI to ARB bc cough AE. MARLEN on CKD St 3 - improved H/o RCC, s/p partial nephrectomy -check AM labs. DM2 -SSI. HLD -statin. BPH GERD -home meds Acute hypoxemic resp failure, resolved VTE prophylaxis: Eliquis Code Status: Full code Status: Inpatient for > 2 midnight stay. Disposition: Med tele with discharge anticipated tomorrow ____ SUBJECTIVE: OBJECTIVE: Physical Exam: General: The patient is a male who is alert and in no acute distress. HEENT: normocephalic, extraocular movements intact, conjunctivae clear. Mucous membranes moist. Neck: trachea midline, no visible masses. CV: +S1/S2, irregularly irregular rhythm, tachycardic rate, no grade 1 systolic murmur. Resp: unlabored, CTAB no RRW. Abd: soft and nondistended. Musculoskeletal: Normal muscle tone/bulk. Neuro: cranial nerves II - XII grossly intact. Intact gross motor and sensory function. Psych: Appropriate mood and appropriate affect. Skin: No pallor. No petechiae. Heme/lymph: No pitting peripheral edema at bilateral lower extremities. Labs/Imaging/Other Tests: Personally reviewed/interpreted. Chest x-ray chronic CHF changes, minimal pulmonary edema bilaterally. CHRISTINA report - LVEF 40-45% w/ distal septum/apex hypokinesis. Severe LAE. Mod- severe MR. Objective: Vital Signs Temp Pulse Resp BP Pulse Ox 36.6 C 109 H 13 123/93 H 96 02/26/19 11:52 02/26/19 11:52 02/26/19 11:52 02/26/19 11:52 02/26/19 11:52 Laboratory Results 02/25/19 03:00 02/26/19 03:08 02/25/19 02/26/19 02/27/19 05:59 05:59 05:59 Intake Total 975 200 Output Total 2300 900 1200 Balance -1325 -700 -1200 PT 14.7 SEC (12.0-15.0) 02/25/19 03:00 INR 1.20 (0.83-1.16) H 02/25/19 03:00 - Time Spent With Patient Time Spent with Patient: greater than 35 minutes Time Spent with Patient: Greater than 35 minutes spent on this patients care, greater than 50% of time spent counseling, educating, and coordinating care regarding the above mentioned plan. ICD10 Worksheet Patient Problems: Problems Problem Status Onset Atrial fibrillation Acute Hypertension Acute Atrial flutter by electrocardiogram Acute
--- NOTE | 2019-02-26 13:45 | PDCARPN ---
Cardiology Progress Note Chief Complaint: Patient reporting orthopnea when lying flat. Assessment/Plan: Assessment: 78-year-old male with known history of permanent atrial fibrillation, hypertension, hyperlipidemia, diabetes chronic renal insufficiency (past history of partial nephrectomy baseline creatinine 1.3). Admitted on 02/23/2018 for increased shortness of breath. Echocardiogram done on 02/23/2019 noting mildly reduced LV systolic function with EF of 45-50% with mild concentric LVH, mild global hypokinesis, no thrombus confirmed by definity in LV. Normal RV size and function, LA severely dilated, RA moderately dilated, moderate to severe MR, trivial AI, moderate TR, elevated RVSP of 47 mm Hg. Elevated BNP on admission of 1710. Treated with IV Lasix with moderate reduction of symptoms. CHRISTINA 02/25/2019 which noted mildly reduced LVEF of 40-45% with distal septum and apex hypokinesis. Severe LA enlargement, no thrombus. Trivial AI, moderate to severe MR with no mitral valve prolapse, mac, or torn chordae. Trivial TR and PI, no ST or PFO. Patient then underwent coronary angiogram, 90% mid diagonal lesion confirmed flow limitation with FFR. PCI performed with SAMANTHA implantation. Laboratories today showing creatinine at 1.5.Right heart catheterization showed wedge pressure of 13, PA 30/18, RV 31/3 with a EDP of 8, RA 8, CO 6.0, CI 2.9, LVEDP 20 mm Hg. 02/26/2019: He reports no chest pain or pressure today. Right groin site, catheter insertion site without redness, swelling, drainage, or hematoma. +2 post tibial pulses bilateral. Patient does report mild orthopnea this morning, with given 1 dose of IV Lasix. Does state mild improvement in symptoms. Laboratories drawn today did note elevated BNP of 3480. Creatinine improved at 1.4 with BUN at 28. A.m. Chest x-ray showing improved bronchitis airway disease , no definitive pneumonia, no pleural effusion or pneumothorax. Patient maintaining atrial fibrillation, 1 triplet of PVCs noted last night. Patient noted to have AFib with RVR with any exertion with rates up to 120 BPM. Patient was seen today with his primary glass embosser, Dr. Marcial. Plan: 1. Systolic heart failure with acute exacerbation: EF noted to be 40-45% by CHRISTINA with distal septum and apical hypokinesis. Improved with diuresis. Elevated BNP today at 3480, but yesterday's wedge pressure was 13 with EDP of 20. 20 mg of IV Lasix given today. Will need to transition him over to oral Lasix. 2. Cardiomyopathy: Significant reduction in previous EF from 60 % in 2016 down to 40-45% during this hospitalization. Continue on beta-marci of metoprolol succinate, Henry inhibitor on hold due to renal insufficiency, patient stating cough for last month, questioning possible adverse reaction to HENRY-inhibitor. When renal function improves, consideration of starting him on an Arb, potentially losartan. 3. Moderate to severe MR: No significant structural mitral valvular disease per CHRISTINA. Question of chronic atrial fibrillation with poor rate control is contributing. Attempting to get better rate control. Will plan on reassessing in a month once this has been achieved by echo. 4. Permanent atrial fibrillation: DC verapamil due to cardiomyopathy. Now having episodes of RVR with exertion. Increase metoprolol succinate to 75 mg p.o. Twice daily with not much significant improvement. Plan to give IV metoprolol today with plans of increasing metoprolol succinate to 100 mg p.o. Twice daily. If necessary, may consider adding digoxin to his medication regime. Patient has been resumed on home dose Eliquis for anticoagulation. 5. Coronary artery disease disease: Noted wall motion abnormality on CHRISTINA. PCI of diagonal, started on clopidogrel. 6. Hyperlipidemia: Patient is statin intolerant in the past, continue on maximum intolerant therapy doses of rosuvastatin and Zetia. 7. Chronic kidney disease: History of partial nephrectomy. Creatinine 1.4 today, improved. Henry inhibitor on hold for time being. Continue to monitor. 8. Hypertension: Well controlled at current time, continue metoprolol. 02/26/19 13:39 Subjective: He denies of any chest pressure or pain. Reporting orthopnea when lying flat, denies of any palpitations, lightheadedness, near-syncope or syncopal events. Reviewed/Discussed With: other (Dr Marcial, Dr Harris and Dr Morales) Objective: Vital Signs (8 Hrs) Temp Pulse Resp BP Pulse Ox 02/26/19 11:52 36.6 C 109 H 13 123/93 H 96 02/26/19 07:08 36.4 C 78 13 127/86 H 96 Intake/Output (24 Hrs) 02/25/19 02/26/19 02/27/19 05:59 05:59 05:59 Intake Total 975 200 Output Total 2300 900 1200 Balance -1328 -700 -1200 Intake: Oral (ml) 975 200 Output: Urine (ml) 2300 900 1200 Urinal 2300 900 1200 Other: Weight 85.638 kg 85.366 kg Number of Voids Toilet 2 Urinal 1 1 1 Result Diagrams: 02/25/19 03:00 02/26/19 03:08 Cardiac Labs: Cardiac Lab Results (72 Hrs) 02/24/19 07:40 Troponin I < 0.012 - Physical Exam Constitutional: no apparent distress Ears, Nose, Mouth, Throat: moist mucous membranes Cardiovascular: no rubs, irregularly irregular (AFib with RVR with rates up to 120 BPM.), jugular vein distention (4 cm above sternal notch at a 45 degree angle), pulses symmetric bilat, No carotid bruit Peripheral Pulses: 1+: dorsalis-pedis (R), dorsalis-pedis (L), 2+: carotid (R), carotid (L) Respiratory: clear to auscultate bilat, no crackles, no wheezes Gastrointestinal: normoactive bowel sounds, no masses Skin: warm, no edema Neurologic: AAOx3 Psychiatric: cooperative, interactive, following commands ICD10 Worksheet Patient Problems: Problems Problem Status Onset Atrial flutter by electrocardiogram Acute Atrial fibrillation Acute Hypertension Acute
--- NOTE | 2019-02-26 14:20 | ASMTCMCOM ---
CM Note CM Note Notes: Pts case discussed in tx rounds. CM met w/ pt, and son for dispo planning. Pt does not feel like he needs any services to be set up at home. Pt reports that he is able to get around independently. CM informed pt that if feels like he needs help when he gets home, he can contact his PCP. CM available for changes. Plan: Independent Date Signed: 02/26/2019 02:19 PM Electronically Signed By:TRAVIS Cantu
[2019-02-26] MEDS ORDERED: METOPROLOL TARTRATE 25 MG TAB PO ONE (14:31)
[2019-02-26] MEDS: TAMSULOSIN HCL 0.4 MG CAP PO SCH (17:10)
[2019-02-26] MEDS: BENZONATATE 100 MG CAP PO PRN (17:10)
[2019-02-26] MEDS: guaiFENesin 600 MG TAB.ER PO PRN (17:15)
[2019-02-26] MEDS: CETIRIZINE 10 MG TAB PO SCH (19:55)
[2019-02-26] MEDS: METOPROLOL SUCCINATE XR 100 MG TAB PO SCH (19:55)
[2019-02-27] MEDS ORDERED: POTASSIUM CL 20 MEQ TAB PO ONE (07:38)
[2019-02-27] MEDS ORDERED: METOPROLOL TARTRATE 5 MG/5 ML INJ IVP ONE ×2 (08:00→10:37)
[2019-02-27] MEDS: METOPROLOL SUCCINATE XR 100 MG TAB PO SCH (08:01)
[2019-02-27] MEDS: glipiZIDE 5 MG TAB PO SCH (08:01)
[2019-02-27] MEDS: PANTOPRAZOLE SODIUM 40 MG TAB PO SCH (08:01)
[2019-02-27] MEDS: CLOPIDOGREL BISULFATE 75 MG TAB PO SCH (08:01)
[2019-02-27] MEDS: EZETIMIBE 10 MG TAB PO SCH (08:01)
[2019-02-27] MEDS: APIXABAN 5 MG TAB PO SCH (08:02)
[2019-02-27] MEDS: EPLERENONE 25 MG TAB PO SCH (08:11)
[2019-02-27] MEDS: INSULIN LISPRO 100 UNIT/ML SC SCH (08:12)
[2019-02-27] MEDS ORDERED: FUROSEMIDE 20 MG TAB PO SCH (09:00)
[2019-02-27] MEDS ORDERED: LOSARTAN POTASSIUM 25 MG TAB PO SCH (09:00)
[2019-02-27] MEDS: FLUTICASONE NASAL 120 SPRAYS/16 GM MDI EACHNARE SCH (09:47)
--- NOTE | 2019-02-27 10:29 | PDDCSUM ---
Discharge Summary Discharge Summary: Discharge diagnoses: CAD, s/p stent Acute systolic CHF exacerbation, resolving Moderate to severe MR AF HTN MARLEN on CKD St 3 - improved H/o RCC, s/p partial nephrectomy DM2 HLD BPH GERD Acute hypoxemic resp failure, resolved Consultants: Cardiology- Dr. Harris. Hospital course: The pt is a 78yo M who was admitted for worsened cough, shortness of breath, and dyspnea on exertion. He was found to be in an acute CHF exacerbation with atrial fibrillation and greatly improved with diuretics. He underwent CHRISTINA which revealed septal and apical hypokinesis, LVEF 40-45%, mod-severe MR, and severe LAE. He underwent left and right heart angiogram, which revealed 90% mid diagonal lesion which was treated with a drug eluting stent. He was started on Plavix. He was taken off of verapamil and his metoprolol succinate dose was increased for rate control. His lisinopril was thought to be causing a dry cough , so he was switched to losartan. Patient was discharged to home after his 4th day in the hospital in stable condition. Special instructions from [facility]: Avoid exerting yourself until you see Cardiology next week. Check labwork on Sunday. Return to hospital for worsening or severe symptoms such as fainting, chest pain , or difficulty breathing. Groin precaution: 1. No lifting more the 5-10 pounds for 1 week 2. May shower but no bath, hot tubs or swimming pool (no stand water submersion ) until all insertion site are healed 3. Keep band aid on insertion site if clothing causes pressure on the insertion site 4. Watch for sign of infection (fever, redness, swelling, drainage, night sweat or chills) Call Dr Marcial's office immediately if you have any of these symptoms [phone]. 5. If you notice a large amount of bleeding at site, hold press over it and call 911 6. No strenuous exercise for 2 weeks 7. Resume Eliquis at 5 mg PO twice daily 8. Take 75 mg of Plavix daily. 9. Please have lab work drawn on 03/03/2019. 10. Follow-up appointment with Dr. Marcial on 03/04/2019 at 10:30 a.m. Other Follow up: PCP in 1 week.
--- NOTE | 2019-02-27 10:33 | ASMTLACE ---
LACE Length of stay for Answers: 3 days current admission Acuity / Level of Answers: Yes Care: Did the patient have an inpatient admission? Comorbidities - select Answers: Any tumor (including all that apply lymphoma or leukemia) Coronary Artery Disease Diabetes (uncontrolled or controlled) Mild liver or renal disease Other Notes: Afib on Eliquis, HTN, saphenous vein clot, R partial nephrectomy, BPH, HLD, squ amous cell CA, kidney C A # of Emergency department Answers: 1-2 visits in the last 6 months Score: 15 Date Signed: 02/27/2019 10:32 AM Electronically Signed By:Maggie Lobato RN
--- NOTE | 2019-02-27 10:37 | ASDISCHSUM ---
Discharge Information Plan Status:Home with No Needs Medically Cleared to Leave:02/27/2019 Discharge Date:02/27/2019 CM D/C Disposition:Home, Routine, Self-Care ADT D/C Disposition:Home, Routine, Self-Care Projected Discharge Date:02/27/2019 Transportation at D/C: Discharge Delay Reason: Follow-Up Date:02/27/2019 Discharge Slot: Final Diagnosis: Placement Information Patient Contact Information Contact Name:ASHLEY Relationship: Address:[address] City:[facility] Phone: [facility]/Zip Code:[place] [address] Email: Financial Information Financial Class:Medicare Advantage Plans Primary Plan Desc:[employer] GOLD MEDICARE Primary Plan Number:[id number] Secondary Plan Desc: Secondary Plan Number: Assessment Information LACE LACE Length of stay for Answers: 3 days current admission Acuity / Level of Answers: Yes Care: Did the patient have an inpatient admission? Comorbidities - select Answers: Any tumor (including all that apply lymphoma or leukemia) Coronary Artery Disease Diabetes (uncontrolled or controlled) Mild liver or renal disease Other Notes: Afib on Eliquis, HTN, saphenous vein clot, R partial nephrectomy, BPH, HLD, squ amous cell CA, kidney C A # of Emergency department Answers: 1-2 visits in the last 6 months Score: 15 Date Signed: 02/27/2019 10:32 AM Electronically Signed By:Maggie Lobato RN [facility] Progress Note CM Note CM Note Notes: Reviewed chart. Pt admitted for new onset of shortness of breath and worsening cough x 7-8 weeks. History includes afib, HTN, DM type II, kidney CA with partial nephrectomy, saphenous vein blood clot, BPH, HLD, squamous cell carcinoma. Pt is and lives with his in [place]. He is retired and plays golf 4 days/week. Per morning rounds, several diagnostic tests are pending. Discharge needs remain unclear at this time. Anticipate pt will likely discharge home independently with family support when medically stable. CM will continue to follow for any potential needs. Discharge Plan: To be determined, likely independent Date Signed: 02/23/2019 11:13 AM Electronically Signed By:June Meza RN [facility] Progress Note CM Note CM Note Notes: Pts case discussed in tx rounds. CM met w/ pt, and son for dispo planning. Pt does not feel like he needs any services to be set up at home. Pt reports that he is able to get around independently. CM informed pt that if feels like he needs help when he gets home, he can contact his PCP. CM available for changes. Plan: Independent Date Signed: 02/26/2019 02:19 PM Electronically Signed By:TRAVIS Cantu Case Management Discharge Plan Note Case Management Discharge Discharge Order Complete? Answers: Yes Patient to Obtain Answers: Independently Medications Discharge Comments Notes: 02/27/2019 Case Management Note PT cleared pt for safe discharge home. Pt has supportive . Pt to discharge independent with follow up as directed. Date Signed: 02/27/2019 10:36 AM Electronically Signed By:Maggie Lobato RN Intervention Information Intervention Type:*IM-Signed Date of Service:02/27/2019 10:13 AM Patient Type:Inpatient Staff Member:Kyra Senior Hours: Discipline: Severity: Comment:
--- NOTE | 2019-02-27 10:48 | PDCARPN ---
Cardiology Progress Note Chief Complaint: Patient states he has noted some mild shortness of breath, but feels this has improved. Would like to go home Assessment/Plan: Assessment: 78-year-old male with known history of permanent atrial fibrillation, hypertension, hyperlipidemia, diabetes chronic renal insufficiency (past history of partial nephrectomy baseline creatinine 1.3). Admitted on 02/23/2018 for increased shortness of breath. Echocardiogram done on 02/23/2019 noting mildly reduced LV systolic function with EF of 45-50% with mild concentric LVH, mild global hypokinesis, no thrombus confirmed by definity in LV. Normal RV size and function, LA severely dilated, RA moderately dilated, moderate to severe MR, trivial AI, moderate TR, elevated RVSP of 47 mm Hg. Elevated BNP on admission of 1710. Treated with IV Lasix with moderate reduction of symptoms. CHRISTINA 02/25/2019 which noted mildly reduced LVEF of 40-45% with distal septum and apex hypokinesis. Severe LA enlargement, no thrombus. Trivial AI, moderate to severe MR with no mitral valve prolapse, mac, or torn chordae. Trivial TR and PI, no ST or PFO. Patient then underwent coronary angiogram, 90% mid diagonal lesion confirmed flow limitation with FFR. PCI performed with SAMANTHA implantation. Laboratories today showing creatinine at 1.5.Right heart catheterization showed wedge pressure of 13, PA 30/18, RV 31/3 with a EDP of 8, RA 8, CO 6.0, CI 2.9, LVEDP 20 mm Hg. CXR on 02/26/2019 improved bronchitis airway disease, no definitive pneumonia, no pleural effusion or pneumothorax. 02/27/2019: He reports no episodes of chest pain or pressure throughout the night. He does state mild shortness of breath occasionally, but feels this has improved. He continues to be in AFib, resting his rate is in the 90s, with exertion he still peaks up to 120. Laboratories today noting potassium at 3.4, BUN 29, creatinine 1.4. He has had no bleeding issues, being on both clopidogrel and Eliquis. Continues cardiac monitoring showing AFib with occasional PVC. No other malignant arrhythmias or pauses noted. Plan: 1. Systolic heart failure with acute exacerbation: EF noted to be 40-45% by CHRISTINA with distal septum and apical hypokinesis. Patient reports improvement in shortness of breath with IV diuresis from yesterday. Output greater than input. Renal function stable. Start him on oral Lasix. Encouraged him daily weights, low-sodium intake. 2. Cardiomyopathy: Significant reduction in previous EF from 60 % in 2016 down to 40-45% during this hospitalization. Continue on beta-marci of metoprolol succinate, Henry inhibitor on hold due to renal insufficiency, patient stating cough for last month, questioning possible adverse reaction to HENRY-inhibitor. Consideration of restarting him on Arb in outpatient setting. Continue on Inspra 3. Moderate to severe MR: No significant structural mitral valvular disease per CHRISTINA. Question of chronic atrial fibrillation with poor rate control is contributing. Attempting to get better rate control. Will plan on reassessing in a month once this has been achieved by echo. 4. Permanent atrial fibrillation: Good rate control with increase of metoprolol succinate at rest, with exertion, elevated rates. Potentially will improve after he has been on higher dose for few days. Patient given IV dose of metoprolol tartrate today with better rate control. Will plan on re- evaluating him in outpatient setting, follow-up appointment has been made for him to be seen in office on Sunday. If continue to have elevated rates with exertion, 2nd agent may be necessary. Patient has been resumed on home dose Eliquis for anticoagulation. 5. Coronary artery disease disease: Noted wall motion abnormality on CHRISTINA. PCI of diagonal, started on clopidogrel. 6. Hyperlipidemia: Patient is statin intolerant in the past, continue on maximum intolerant therapy doses of rosuvastatin and Zetia. 7. Chronic kidney disease: History of partial nephrectomy. Creatinine 1.4 today, improved. Plan on repeating BMP next Sunday before follow-up office visit.. 8. Hypertension: Well controlled at current time, continue metoprolol. 02/27/19 10:48 Subjective: He reports no chest pain or pressure. Does report occasional SOB with exertion. Denies of any palpitations, lightheadedness, near-syncope or syncopal events. Reports no symptoms suggestive of TIA or CVA. Reviewed/Discussed With: hospitalist (Robin), other (Dr Marcial) Objective: Vital Signs (8 Hrs) Temp Pulse Resp BP Pulse Ox 02/27/19 10:44 105 H 126/87 H 02/27/19 09:00 99 128/66 H 02/27/19 08:11 135 H 131/93 H 02/27/19 07:11 36.4 C 96 18 133/99 H 94 02/27/19 03:52 36.7 C 84 16 137/97 H 98 Intake/Output (24 Hrs) 02/26/19 02/27/19 02/28/19 05:59 05:59 05:59 Intake Total 200 1000 Output Total 900 2050 Balance -700 -1050 Intake: Oral (ml) 200 1000 Output: Urine (ml) 900 2050 Urinal 900 2050 Other: Weight 85.366 kg 85 kg Number of Voids Urinal 1 1 Number of Stools Urinal 1 Result Diagrams: 02/25/19 03:00 02/27/19 03:16 Cardiac Labs: Cardiac Lab Results (72 Hrs) 02/24/19 07:40 Troponin I < 0.012 - Physical Exam Constitutional: WDWN, no apparent distress Ears, Nose, Mouth, Throat: moist mucous membranes Cardiovascular: no rubs, systolic murmur (2/6 left sternal border), irregularly irregular (AFib.), pulses symmetric bilat, No jugular vein distention, No carotid bruit Peripheral Pulses: 1+: dorsalis-pedis (R), dorsalis-pedis (L), 2+: carotid (R), carotid (L) Respiratory: clear to auscultate bilat, no crackles, no wheezes Gastrointestinal: normoactive bowel sounds, no tenderness, no masses Skin: warm, No no edema Neurologic: AAOx3 Psychiatric: cooperative, interactive, following commands ICD10 Worksheet Patient Problems: Problems Problem Status Onset Atrial flutter by electrocardiogram Acute Atrial fibrillation Acute Hypertension Acute Shortness of breath Acute
[2019-02-27 11:41] VITALS: BP 122/96
--- NOTE | 2019-03-05 16:47 | CPEKG ---
Test Reason : OPEN Blood Pressure : / mmHG Vent. Rate : 066 BPM Atrial Rate : 160 BPM P-R Int : 140 ms QRS Dur : 141 ms QT Int : 458 ms P-R-T Axes : 000 -58 -58 degrees QTc Int : 480 ms Atrial fibrillation/flutter Left bundle branch block Confirmed by Aleks Justice ([id number]) on 03/05/2019 4:47:17 PM Referred By: Nilda Olea Confirmed By:Aleks Justice
--- NOTE | 2019-03-05 19:50 | CPEKG ---
Test Reason : OPEN Blood Pressure : / mmHG Vent. Rate : 088 BPM Atrial Rate : 194 BPM P-R Int : 136 ms QRS Dur : 141 ms QT Int : 415 ms P-R-T Axes : 000 -55 060 degrees QTc Int : 503 ms Atrial fibrillation Left bundle branch block Similar to prior Confirmed by Aleks Justice ([id number]) on 03/05/2019 7:49:58 PM Referred By: Nilda Olea Confirmed By:Aleks Justice
== END 2019-02-27 13:05 | disposition home or self-care (01) | DRG 246 ==
LOC: F2W 22:20 → OBSVTOIN 02-23 13:41
PROVIDERS: ADMIT Internal Medicine; ATTEND Internal Medicine
DX: I25.10 Atherosclerotic heart disease of native coronary artery without angina pectoris (principal); I13.0 Hypertensive heart and chronic kidney disease with heart failure and stage 1 through stage 4 chronic kidney disease, or unspecified chronic kidney disease; I50.21 Acute systolic (congestive) heart failure; J96.01 Acute respiratory failure with hypoxia; N18.3 Chronic kidney disease, stage 3 (moderate); N17.9 Acute kidney failure, unspecified; I48.2 Chronic atrial fibrillation; E11.22 Type 2 diabetes mellitus with diabetic chronic kidney disease; I34.0 Nonrheumatic mitral (valve) insufficiency; E78.5 Hyperlipidemia, unspecified; K21.9 Gastro-esophageal reflux disease without esophagitis; N40.0 Benign prostatic hyperplasia without lower urinary tract symptoms; Z79.01 Long term (current) use of anticoagulants; Z85.51 Personal history of malignant neoplasm of bladder; Z86.718 Personal history of other venous thrombosis and embolism; Z90.5 Acquired absence of kidney
CPT/HCPCS: 84484-ER; 97162-GP; C1725; C1760; C1769; C1874; C1887; C8924; C9600; G0378; J0153; J0330; J1644; J1815; J1940; J2250; J2704; J3010; Q9957; Q9967

== ENCOUNTER 2019-03-08 01:37 | Inpatient (IN) | payer OTHER ==
[2019-03-08] MEDS ORDERED: FUROSEMIDE 40 MG/4 ML VIAL IVP ONE (02:16)
[2019-03-08] MEDS ORDERED: FUROSEMIDE 20 MG/2 ML VIAL ONE (02:17)
[2019-03-08 02:21] LABS: PLATELET COUNT 207 10^3/uL (150-400)
--- NOTE | 2019-03-08 02:23 | EDPHY ---
H & P Stated Complaint: SOB, worse when lying doew, cough Time Seen by Provider: 03/08/19 01:44 HPI/ROS: HPI The patient presents with shortness of breath for the last several nights which is prevented him from sleeping tonight. The patient says when he lies flat he became very short of breath, also has coughing and has to sit upright. He has been unable to sleep in an upright position. He called the on-call ground crew lines person who recommended he came to the emergency department for further evaluation. Patient denies any chest pain. He does not have any palpitations. He does not have any lower extremity edema. He weighs himself frequently and has not noticed increased weights. He is able to walk during the day without any dyspnea. He was admitted to the hospital for 5 days and was discharged on February 27. At that time he had acute decompensated systolic CHF, also underwent cardiac catheterization with placement of stent. He had been feeling well at home up until the last few days. He has been compliant with his medications. REVIEW OF SYSTEMS 10 systems were reviewed and negative with the exception of the elements mentioned in the history of present illness. PMHx: Systolic CHF, EF of 40-45%, CAD recent cardiac stent placement, atrial fibrillation on amlodipine, Eliquis, chronic kidney disease, type 2 diabetes Soc Hx: Housed with his PHYSICAL General Appearance: Alert, no distress Eyes: Pupils equal and round no pallor or injection ENT, Mouth: Mucous membranes moist Respiratory: There are no retractions, crackles throughout all lung gavin Cardiovascular: Tachycardic, irregularly irregular Gastrointestinal: Abdomen is soft and non-tender, no masses, bowel sounds normal Neurological: A&O, moves all extremities Skin: Warm and dry, no rashes Musculoskeletal: Neck is supple non tender Extremities: symmetrical, full range of motion Psychiatric: Patient is oriented X 3, there is no agitation Source: Patient, Old records Exam Limitations: No limitations - Personal History Current Tetanus Diphtheria and Acellular Pertussis (TDAP): Yes - Medical/Surgical History Hx Asthma: No Hx Chronic Respiratory Disease: No Hx Diabetes: Yes Hx Cardiac Disease: Yes Hx Renal Disease: Yes Hx Cirrhosis: No Hx Alcoholism: No Hx HIV/AIDS: No Hx Splenectomy or Spleen Trauma: No Other PMH: HTN, D.M. A-FIB, KIDNEY REMOVED FOR CA. mitral valve - Social History Smoking Status: Never smoked Constitutional: Initial Vital Signs Temperature (C) 36.6 C 03/08/19 01:40 Heart Rate 115 H 03/08/19 01:40 Respiratory Rate 20 03/08/19 01:40 Blood Pressure 140/89 H 03/08/19 01:40 O2 Sat (%) 96 03/08/19 01:40 O2 Delivery Mode Room Air O2 (L/minute) 2 Allergies/Adverse Reactions: fluticasone [From Flovent Diskus] Allergy (Verified 03/08/19 01:40) Penicillins Allergy (Verified 03/08/19 01:40) Home Medications: Medication Instructions Recorded Eplerenone [Inspra 25 MG (*)] 50 mg PO DAILY 10/05/16 Ezetimibe [Zetia 10 MG (*)] 10 mg PO Q2D 10/05/16 Omeprazole 20 mg PO DAILY 10/05/16 Rosuvastatin Calcium [Crestor 20mg 5 mg PO Q2D 10/05/16 (*)] Tamsulosin HCl [Flomax 0.4 MG (*)] 0.4 mg PO DAILY@1830 10/05/16 metFORMIN HCL [Metformin HCl] 1,000 mg PO BIDMEAL 10/05/16 Apixaban [Eliquis] 5 mg PO BID 02/22/19 glipiZIDE [Glipizide] 2.5 mg PO BIDMEAL 02/22/19 Clopidogrel Bisulfate [Clopidogrel] 75 mg PO DAILY #30 tablet 02/27/19 Clopidogrel Bisulfate [Plavix (*)] 75 mg PO DAILY tab 02/27/19 Furosemide [Lasix 20 MG (*)] 20 mg PO DAILY #30 tab 02/27/19 Metoprolol Succinate Xr [Toprol Xl 100 mg PO BID #60 tab 02/27/19 100 mg (*)] Potassium Cl [Klor-Con 10 meq (RX)] 10 meq PO DAILY #10 tab 02/27/19 Yanet Allergy 03/08/19 Amiodarone HCl 03/08/19 Flonase Allergy Relief 03/08/19 Medical Decision Making - Diagnostics EKG Interpretation: EKG: Complete interpretation has been separately recorded in the [facility] archive. Summary impression: Atrial fibrillation with RVR, left bundle branch block similar to prior EKGs. Imaging Results: Chest x-ray two view shows increased interstitial markings consistent with pulmonary edema, interpreted by me, radiology interpretation pending. Imaging: I viewed and interpreted images myself Differential Diagnosis: 78-year-old man, recently admitted to the hospital for CHF exacerbation, CAD with recent stent placement presents with orthopnea for the last 2 nights, no associated symptoms. Here, in fast AFib, crackles on lung exam, concerning for recurrent decompensated CHF. Patient was given Lasix 40 mg IV with minimal diuresis. He continued to feel the same with shortness of breath mostly when lying in a recumbent position. He did not have any chest pain. Chest x-ray demonstrates mild pulmonary edema, EKG shows stable atrial fibrillation with left bundle branch block with no clear sign of ischemia. Patient's troponin is elevated at 0.12 which could be related to strain given the absence of chest pain, however raises concern for possible stent restenosis. BNP is elevated, similar to prior levels, other laboratory testing is stable. Because of his limited diuresis an elevated troponin, I will admit him to the hospital. I have consulted with Dr. Gustafson and I have ordered the patient a bed in the PCU. - Data Points Laboratory Results: Laboratory Results 03/08/19 01:54 03/08/19 01:54 03/08/19 03/08/19 03/08/19 01:59 01:54 01:54 WBC RBC Hgb Hct MCV MCH MCHC RDW Plt Count MPV Neut % (Auto) Lymph % (Auto) [place] % (Auto) Eos % (Auto) Baso % (Auto) Nucleat RBC Rel Count Absolute Neuts (auto) Absolute Lymphs (auto) Absolute Monos (auto) Absolute Eos (auto) Absolute Basos (auto) Absolute Nucleated RBC Immature Gran % Immature Gran # RBC/WBC/PLT Morphology Platelet Estimate D-Dimer 0.41 ug/mLFEU ug/mLFEU (0.00-0.50) Sodium 141 mEq/L mEq/L (135-145) Potassium 3.5 mEq/L mEq/L (3.5-5.2) Chloride 105 mEq/L mEq/L (97-110) Carbon Dioxide 20 mEq/l L mEq/l (22-31) Anion Gap 16 mEq/L H mEq/L (6-14) BUN 31 mg/dL H mg/dL (7-23) Creatinine 1.5 mg/dL H mg/dL (0.7-1.3) Estimated GFR 45 Glucose 148 mg/dL H mg/dL (70-100) Calcium 10.2 mg/dL mg/dL (8.5-10.4) POC Troponin I 0.12 ng/mL H ng/mL (0.00-0.08) NT-Pro-B Natriuret Pep 3340 pg/mL H pg/mL (0-450) 03/08/19 01:54 WBC 10.01 10^3/uL H 10^3/uL (3.80-9.50) RBC 5.25 10^6/uL 10^6/uL (4.40-6.38) Hgb 15.0 g/dL g/dL (13.7-17.5) Hct 44.7 % % (40.0-51.0) MCV 85.1 fL fL (81.5-99.8) MCH 28.6 pg pg (27.9-34.1) MCHC 33.6 g/dL g/dL (32.4-36.7) RDW 15.6 % H % (11.5-15.2) Plt Count 207 10^3/uL 10^3/uL (150-400) MPV 11.1 fL fL (8.7-11.7) Neut % (Auto) 85.4 % H % (39.3-74.2) Lymph % (Auto) 5.8 % L % (15.0-45.0) [place] % (Auto) 7.0 % % (4.5-13.0) Eos % (Auto) 1.2 % % (0.6-7.6) Baso % (Auto) 0.3 % % (0.3-1.7) Nucleat RBC Rel Count 0.0 % % (0.0-0.2) Absolute Neuts (auto) 8.55 10^3/uL H 10^3/uL (1.70-6.50) Absolute Lymphs (auto) 0.58 10^3/uL L 10^3/uL (1.00-3.00) Absolute Monos (auto) 0.70 10^3/uL 10^3/uL (0.30-0.80) Absolute Eos (auto) 0.12 10^3/uL 10^3/uL (0.03-0.40) Absolute Basos (auto) 0.03 10^3/uL 10^3/uL (0.02-0.10) Absolute Nucleated RBC 0.00 10^3/uL 10^3/uL (0-0.01) Immature Gran % 0.3 % % (0.0-1.1) Immature Gran # 0.03 10^3/uL 10^3/uL (0.00-0.10) RBC/WBC/PLT Morphology TNP Platelet Estimate TNP D-Dimer Sodium Potassium Chloride Carbon Dioxide Anion Gap BUN Creatinine Estimated GFR Glucose Calcium POC Troponin I NT-Pro-B Natriuret Pep Medications Given: Discontinued Medications Furosemide (Lasix Injection) 40 mg IVP EDNOW ONE Stop: 03/08/19 02:17 Last Admin: 03/08/19 02:20 Dose: 40 mg Point of Care Test Results: Chemistry 03/08/19 01:59 POC Troponin I 0.12 ng/mL H ng/mL (0.00-0.08) Departure - Departure Disposition: [facility] Acute Clinical Impression: Orthopnea, Elevated troponin Congestive heart failure Qualifiers: Heart failure type: systolic Heart failure chronicity: acute on chronic Qualified Code(s): I50.23 - Acute on chronic systolic (congestive) heart failure Atrial fibrillation Qualifiers: Atrial fibrillation type: chronic Qualified Code(s): I48.2 - Chronic atrial fibrillation Condition: Fair Referrals: Cortez Marcial MD [Primary Care Provider] - As per Instructions
[2019-03-08] MEDS ORDERED: ONDANSETRON DISINTEGRATING 4 MG TAB PO PRN (03:38)
[2019-03-08] MEDS ORDERED: ACETAMINOPHEN 325 MG TAB PO PRN (03:38)
[2019-03-08] MEDS ORDERED: ONDANSETRON 4 MG/2 ML VIAL IVP PRN (03:38)
--- NOTE | 2019-03-08 04:33 | PDGENHP ---
History and Physical - Chief Complaint Orthopnea - History of Present Illness 78 yo M w/ CAD s/p recent stent, CHF, HTN, CKD, and DM presents with orthopnea and cough. The patient was recently admitted for CHF exacerbation and also received a stent to treat a mid diagonal branch lesion. He was discharged on 02/27. At that time his verapamil was stopped and metoprolol dose was increased. He tells me his orthopnea and cough have been present since discharge. However, his symptoms have worsened to the point where he has been having difficulty sleeping. He denies infectious symptoms. He saw Dr. Marcial on 03/04. His metoprolol dose was decreased to 50 mg BID and amiodarone was started. He is planning for a cardioversion in about 2 weeks. He also saw Dr. Ureña for evaluation of his cough. Dr. Ureña thought upper airway cough syndrome was a possible explanation for his cough. Today in the ED his evaluation is notable for indeterminate troponin and elevated HR. His CXR demonstrates mild increase in edema compared to prior. His HR was initially about 130 but is now about 100 without intervention. He is comfortable during my evaluation. Case discussed with ED physician Dr. Colindres; records reviewed and summarized above. History Information - Allergies/Home Medication List Allergies/Adverse Reactions: fluticasone [From Flovent Diskus] Allergy (Verified 03/08/19 01:40) Penicillins Allergy (Verified 03/08/19 01:40) Home Medications: Eplerenone [Inspra 25 MG (*)] 50 mg PO DAILY 10/05/16 [Last Taken 02/22/19] Ezetimibe [Zetia 10 MG (*)] 10 mg PO Q2D 10/05/16 [Last Taken Unknown] Omeprazole 20 mg PO DAILY 10/05/16 [Last Taken 02/22/19] Rosuvastatin Calcium [Crestor 20mg (*)] 5 mg PO Q2D 10/05/16 [Last Taken Unknown ] Tamsulosin HCl [Flomax 0.4 MG (*)] 0.4 mg PO DAILY@1830 10/05/16 [Last Taken ] metFORMIN HCL [Metformin HCl] 1,000 mg PO BIDMEAL 10/05/16 [Last Taken 02/22/19 09:00] Apixaban [Eliquis] 5 mg PO BID 02/22/19 [Last Taken 02/22/19 09:00] glipiZIDE [Glipizide] 2.5 mg PO BIDMEAL 02/22/19 [Last Taken 02/22/19 09:00] Yanet Allergy 03/08/19 [Last Taken Unknown] Amiodarone HCl 03/08/19 [Last Taken Unknown] Flonase Allergy Relief 03/08/19 [Last Taken Unknown] I have personally reviewed and updated: family history, medical history - Past Medical History Additional medical history: HTN, HLD, chronic afib on eliquis, DM II, kidney cancer s/p partial nephrectomy. squamous cell carcinoma scalp, ear, legs. saphenous vein clot 2010. - Surgical History Additional surgical history: partial nephrectomy on right, T&A - Family History Additional family history: father, brother with CAD. brother with CVA. mother - cancer. - Social History Smoking Status: Never smoked Additional social history: Patient is and lives with . Review of Systems Review of Systems: ROS: 10pt was reviewed & negative except for what was stated in HPI & below Physical Exam Physical Exam: Temp Pulse Resp BP Pulse Ox 36.5 C 103 H 18 144/113 H 95 03/08/19 03:37 03/08/19 03:37 03/08/19 03:37 03/08/19 03:37 03/08/19 03:37 Constitutional: no apparent distress, not in pain Eyes: PERRL, EOMI Ears, Nose, Mouth, Throat: moist mucous membranes, no oral mucosal ulcers Cardiovascular: irregularly irregular, tachycardia Respiratory: no respiratory distress, inspiratory crackles (Bibasilar) Gastrointestinal: normoactive bowel sounds, soft, non-tender abdomen Skin: warm, normal color, other (Bruising R groin, no hematoma) Musculoskeletal: full muscle strength, no muscle tenderness Neurologic: AAOx3, CN II-XII Intact Psychiatric: interacting appropriately, not anxious Lab Data & Imaging Review 03/08/19 01:54 03/08/19 01:54 WBC 10.01 10^3/uL (3.80-9.50) H 03/08/19 01:54 RBC 5.25 10^6/uL (4.40-6.38) 03/08/19 01:54 Hgb 15.0 g/dL (13.7-17.5) 03/08/19 01:54 Hct 44.7 % (40.0-51.0) 03/08/19 01:54 MCV 85.1 fL (81.5-99.8) 03/08/19 01:54 MCH 28.6 pg (27.9-34.1) 03/08/19 01:54 MCHC 33.6 g/dL (32.4-36.7) 03/08/19 01:54 RDW 15.6 % (11.5-15.2) H 03/08/19 01:54 Plt Count 207 10^3/uL (150-400) 03/08/19 01:54 MPV 11.1 fL (8.7-11.7) 03/08/19 01:54 Neut % (Auto) 85.4 % (39.3-74.2) H 03/08/19 01:54 Lymph % (Auto) 5.8 % (15.0-45.0) L 03/08/19 01:54 [place] % (Auto) 7.0 % (4.5-13.0) 03/08/19 01:54 Eos % (Auto) 1.2 % (0.6-7.6) 03/08/19 01:54 Baso % (Auto) 0.3 % (0.3-1.7) 03/08/19 01:54 Nucleat RBC Rel Count 0.0 % (0.0-0.2) 03/08/19 01:54 Absolute Neuts (auto) 8.55 10^3/uL (1.70-6.50) H 03/08/19 01:54 Absolute Lymphs (auto) 0.58 10^3/uL (1.00-3.00) L 03/08/19 01:54 Absolute Monos (auto) 0.70 10^3/uL (0.30-0.80) 03/08/19 01:54 Absolute Eos (auto) 0.12 10^3/uL (0.03-0.40) 03/08/19 01:54 Absolute Basos (auto) 0.03 10^3/uL (0.02-0.10) 03/08/19 01:54 Absolute Nucleated RBC 0.00 10^3/uL (0-0.01) 03/08/19 01:54 Immature Gran % 0.3 % (0.0-1.1) 03/08/19 01:54 Immature Gran # 0.03 10^3/uL (0.00-0.10) 03/08/19 01:54 RBC/WBC/PLT Morphology TNP 03/08/19 01:54 Platelet Estimate TNP 03/08/19 01:54 D-Dimer 0.41 ug/mLFEU (0.00-0.50) 03/08/19 01:54 Sodium 141 mEq/L (135-145) 03/08/19 01:54 Potassium 3.5 mEq/L (3.5-5.2) 03/08/19 01:54 Chloride 105 mEq/L (97-110) 03/08/19 01:54 Carbon Dioxide 20 mEq/l (22-31) L 03/08/19 01:54 Anion Gap 16 mEq/L (6-14) H 03/08/19 01:54 BUN 31 mg/dL (7-23) H 03/08/19 01:54 Creatinine 1.5 mg/dL (0.7-1.3) H 03/08/19 01:54 Estimated GFR 45 03/08/19 01:54 Glucose 148 mg/dL (70-100) H 03/08/19 01:54 Calcium 10.2 mg/dL (8.5-10.4) 03/08/19 01:54 POC Troponin I 0.12 ng/mL (0.00-0.08) H 03/08/19 01:59 NT-Pro-B Natriuret Pep 3340 pg/mL (0-450) H 03/08/19 01:54 Visualized and Interpreted Chest x-ray results: Yes Chest X-Ray results: other (Mild edema) Visualized and Interpreted EKG results: Yes EKG Interpretation: Positive for: left bundle branch block, other (AF) Assessment & Plan Assessment: 78 yo M w/ CAD s/p recent stent, CHF, HTN, CKD, and DM presents with orthopnea and cough. Plan: 1. Systolic CHF with possible exacerbation - The patient presents mostly with symptoms of orthopnea, which have been present since recent admission but progressive over the last few days. This may be related to uncontrolled HR, as HR was noted to be about 130 upon arrival. His troponin is in the indeterminate range but he denies chest pain. ECG stable from prior with AF and LBBB. CXR does demonstrate mild increase in edema from prior. - Observe in PCU - Monitor on telemetry - Will trial furosemide 40 mg IV BID - Monitor I/Os, daily weights - Cardiology consultation placed 2. Atrial fibrillation - Initially with RVR but rates improved now without further intervention. He takes Toprol XL 50 mg BID as well as apixaban and amiodarone as an outpatient. - Continue home medications - Monitor on telemetry - Cardiology consult as above, may benefit from cardioversion 3. Elevated troponin - Possibly demand ischemia from increased HR. He denies chest pain. ECG stable w/ LBBB and AF. - Trend cardiac enzymes 4. Cough - This has been present for several months. The patient denies acute infectious symptoms such as fever. He saw Dr. Ureña as an outpatient who thought this may be due to upper airway cough syndrome. 5. CAD - S/p recent stent to mid diagonal branch. He denies acute chest pain. 6. NIDDM - Continue oral medications pending reconciliation 7. CKD, Stage III - Serum creatinine stable from prior. - Avoid nephrotoxic agents, renally dose medications Diet - NPO pending cardiology evaluation Code - Full Ppx - apixaban Dispo - Admit under observation status
[2019-03-08 08:13] LABS: PLATELET COUNT 191 10^3/uL (150-400)
--- NOTE | 2019-03-08 09:25 | SOAPPROG ---
SOAP Progress Note Assessment/Plan: Assessment: chf consultation performed and dictated. 78 y/o man with following cardiac and medical issues: --afib probably permanent x yrs --CHF with LVEF 43% --moderate to severe MR --CAD s/p SAMANTHA to Diagonal 03/16 --previous renal cancer s/p partial nephrectomy with CRI with baseline serum creatinine of 1.4 --HTN --DM --allergic rhinitis Recent CHRISTINA 02/23/19 showed LVEF 43%, severe left atrial enlargement, moderate to severe MR without MV prolapse, trivial TR and no FARHANA clot or other cardiac thrombus. L/R cardiac cath 02/25/19 got SAMANTHA to small to moderate size Diagonal branch. RHC: RA 10, PA (25), PCWP 13 and CO/CI 6.0/2.9 L/MIN. He saw his clinic transcripter Dr. Alfredo Marcial four days ago and started on Amiodarone 400mg PO BID with plan for elective CV in two weeks. Admitted with continued dry cough and nightly PND and orthopnea and MORLEY at one block. Denies CP, syncope, TIA sx or fevers. He saw outpatient pulmonary Dr. Ton Ureña and started on Yanet and ordered for PFTs in April 2019. Clinically I think he has moderate volume overload and some allergic rhinitis with post nasal drip. PLAN: 1)start Lasix 40mg IV BID 2)restart home Amiodarone 400mg PO BID, Plavix 75mg PO qam, Eliquis 5mg PO BID, Toprol XL 50mg PO qam, KCL 20meq PO BID and Inspra 50mg PO qam 3)allow to eat. No attempted cardioversion until 7-10 more days of Amiodarone load and more euvolemic. 4)qam (BMP) 5)overall plan to hopefully restore NSR in two weeks and see how clinically does with that before thoughts of sending to sternotomy with MV repair and MAZE or percutaneous MV clop. Thanks. Will follow with you. 03/08/19 09:18 Objective: Vital Signs Temp Pulse Resp BP Pulse Ox 36.3 C 98 14 135/92 H 92 03/08/19 07:31 03/08/19 07:31 03/08/19 07:31 03/08/19 07:31 03/08/19 07:31 Laboratory Results 03/08/19 08:00 03/08/19 08:00 ICD10 Worksheet Patient Problems: Problems Problem Status Onset Atrial fibrillation Acute Congestive heart failure Acute Elevated troponin Acute Orthopnea Acute Atrial flutter by electrocardiogram Acute Hypertension Acute Shortness of breath Acute
[2019-03-08] MEDS ORDERED: AMIODARONE HCL 200 MG TAB PO SCH (09:30)
[2019-03-08] MEDS ORDERED: APIXABAN 5 MG TAB PO SCH ×2 (09:30→10:15)
[2019-03-08] MEDS ORDERED: EPLERENONE 25 MG TAB PO SCH (09:30)
[2019-03-08] MEDS ORDERED: CLOPIDOGREL BISULFATE 75 MG TAB PO SCH ×2 (09:30→10:15)
[2019-03-08] MEDS ORDERED: METOPROLOL SUCCINATE XR 50 MG TAB PO SCH (09:30)
[2019-03-08] MEDS: FUROSEMIDE 40 MG/4 ML VIAL IVP SCH ×2 (10:07→14:57)
[2019-03-08] MEDS: CETIRIZINE 10 MG TAB PO SCH (10:07)
[2019-03-08] MEDS: POTASSIUM CL 20 MEQ TAB PO SCH ×2 (10:07→20:41)
--- NOTE | 2019-03-08 10:45 | GCON ---
[f rep st] CONSULTATION CHF CONSULT DATE OF CONSULTATION: 03/08/2019 REASON FOR CONSULTATION: Evaluate gentleman with persistent dry cough and nightly orthopnea and PND with dyspnea on exertion at 1 block. HISTORY OF PRESENT ILLNESS: The patient is a 78-year-old gentleman with multiple medical problems. He has atrial fibrillation dating back 2 to 3 years which is thought to probably be permanent. He al so has CHF with an LVEF of 43%, moderate to severe mitral regurgitation, hypertension, CAD with recen t drug-eluting stent to a small diagonal branch in January of 2019, previous renal cancer status post p artial nephrectomy with chronic renal insufficiency and a creatinine of 1.4 and diabetes mellitus. Ye garcia had a transesophageal echo done on 02/23/2019, which demonstrated an LVEF of 43% with severe left a trial enlargement and moderate to severe mitral regurgitation with no mitral valve prolapse. There w as trivial tricuspid insufficiency and no evidence of thrombus in any of the 4 cardiac chambers or le ft atrial appendage. A left and right heart catheterization done on February 25, 2019, demonstrated an obstructive lesion in a small to moderate diagonal branch which was treated with a drug-eluting stent . Otherwise, he had moderate diffuse disease. Right heart hemodynamics demonstrated a mean RA of 10 , PA pressure of 30/18 with a mean pulmonary artery pressure of 25, mean pulmonary capillary wedge pr essure of 13 and cardiac output and index of 6.0 and 2.0 L per minute, respectively. The patient had been home for about 8 days and seen his clinic public policy mediator 4 days ago. He continued to have a pers istent dry cough and could not sleep at night unless he was sitting in a chair and had new dyspnea on exertion at [address] Ton Ureña of the pulmonary service as an outpatient last week and w as started on Yanet and scheduled for PFTs in about a month. He was admitted with worsening sympto ms. He denies chest pain, syncope, bleeding or TIA symptoms. His BNP level in the emergency room wa s 3340. PAST MEDICAL HISTORY: 1. Congestive heart failure with an LVEF of 43%. 2. Moderate to severe mitral regurgitation. 3. Probably permanent atrial fibrillation. 4. Hypertension. 5. Diabetes mellitus. 6. Previous renal cancer, status post partial nephrectomy, with baseline creatinine of 1.4. PAST SURGICAL HISTORY: Partial nephrectomy. HOME MEDICATIONS: Lasix 20 mg daily, amiodarone 400 mg b.i.d., Plavix 75 mg per day, Eliquis 5 mg b. i.d., Toprol XL 50 mg per day, Inspra 50 mg per day, KCL 20 mEq per day. ALLERGIES: No known drug allergies. SOCIAL HISTORY: Patient does not smoke cigarettes and has minimal alcohol intake. FAMILY HISTORY: Positive for premature coronary artery disease. REVIEW OF SYSTEMS: Patient has had no real change in his weight over the last 2 weeks. He denies fe vers or chills or purulent sputum production. He has no GI symptoms such as hematemesis, melena or b right red blood per rectum. The rest of the 10-point review of systems is negative. PHYSICAL EXAMINATION: VITAL SIGNS: Temperature is 36.5 celsius, pulse 98 and irregularly irregular, blood pressure 135/92, respirations 22, 92% on room air, weight 85.0 kg. GENERAL: A normal-appeari ng gentleman in no acute distress without chest pain or using accessory respiratory muscles. EYES: Pupils equal and reactive to light. ENT: Oral mucosa with no cyanosis. NECK: Jugular venous press ure to 8 to 9 cm. Carotid pulses 2+ bilaterally with no obvious bruits. No thyromegaly noted. LUNG S: Clear to auscultation bilaterally without rales, rhonchi or wheezing. HEART: Irregularly irregu lar rhythm with 2/6 holosystolic murmur. No S3 is heard. ABDOMEN: Soft and nontender. No hepatosp lenomegaly. No guarding or rebound. No obvious ascites. EXTREMITIES: 2+ peripheral pulses includi ng femoral and pedal pulses. No edema noted. MUSCULOSKELETAL: No scoliosis. NEURO: Normal affect and mood. NECK: No nuchal rigidity. SKIN: No bleeding or cyanosis. LABS: White count 6.7; hematocrit 45; platelets 191,000; MCV 87. Sodium 139, potassium 3.3, chlorid e 105, bicarb 21, BUN 30, creatinine 1.4, glucose 142. D-dimer negative. Troponin 0.07. NT-proBNP level 3340. IMPRESSION AND RECOMMENDATIONS: A 78-year-old gentleman with multiple medical problems as described above with nightly paroxysmal nocturnal dyspnea and orthopnea and dyspnea on exertion at 1 block and a dry cough. I think his symptoms are a combination of both decompensated heart failure and allergic rhinitis with postnasal drip. PLAN: 1. We will change his p.o. Lasix to Lasix 40 mg IV b.i.d. 2. We will increase his home potassium to KCL 20 mEq b.i.d. 3. We will continue rest of medications including amiodarone 400 mg b.i.d. 4. We will continue IV diuresis for 2 to 3 days. 5. I would like to have him continue with amiodarone oral load for the next 10 to 14 days before att empting cardioversion. With that, we will let him eat a full breakfast this morning. 6. Overall, long-term strategy is try to convert him to sinus rhythm in 10 to 14 days after amiodaro ne on board and then see how his LV function and mitral regurgitation do in sinus rhythm for several months. If this is not possible, then I do think discussion about referral for sternotomy with randy l valve repair and maze procedure or a percutaneous mitral valve clip would be necessary. /[id number]/MODL
[2019-03-08] MEDS: PANTOPRAZOLE SODIUM 40 MG TAB PO SCH (11:59)
[2019-03-08] MEDS: EZETIMIBE 10 MG TAB PO SCH (11:59)
--- NOTE | 2019-03-08 12:38 | HOSPPROG ---
Hospitalist Progress Note Assessment/Plan: 78 year old male with afib, cad, admitted with orthopnea and elevated troponin 1. Systolic CHF with possible exacerbation - may be rate related given ECG which shows afib with RVR and rates around 130 ( my interpretation). known hx of afib, and chf. Last LVEF estimated at around 43% with valvular disease as well (review of records by myself. CXR reviewed as well showing possible mild insterstitial prominence which could be edema. I discussed the case with cardiology who recommends IV lasix and diuresis -IV lasix bid 40mg -strict I/O, daily weights, cardiac diet -tele -K replacement. -cont home medications 2. Atrial fibrillation - Initially with RVR but rates improved now without further intervention. He takes Toprol XL 50 mg BID as well as apixaban and amiodarone as an outpatient. - Continue home medications per cardiology - Monitor on telemetry - Cardiology consulting, would like to continue amio for another 10-14 days prior to consideration of cardioversion 3. Elevated troponin - Possibly demand ischemia from increased HR. He denies chest pain. ECG stable w/ LBBB and AF. - Trend cardiac enzymes 4. Cough - This has been present for several months. The patient denies acute infectious symptoms such as fever. He saw Dr. Ureña as an outpatient who thought this may be due to upper airway cough syndrome. 5. CAD - S/p recent stent to mid diagonal branch. He denies acute chest pain. cont home medications. 6. NIDDM - hold glipizide and glucophage. SSI added. 7. CKD, Stage III - review of old records shows hx of renal cancer. renal function at baseline. - Avoid nephrotoxic agents, renally dose medications Diet - cardiac diet Code - Full Ppx - apixaban Dispo - Will need inpatient for further management of CHF, afib with RVR. I reviewed the patients old records showing recent admission for CHF that resulted in a cardiac stent placement. Chart, records, imaging and labs all reviewed as well. Subjective: coughing still. no chest pain. Objective: Vital Signs Temp Pulse Resp BP Pulse Ox 36.6 C 103 H 18 130/77 H 95 03/08/19 11:16 03/08/19 11:16 03/08/19 11:16 03/08/19 11:16 03/08/19 11:16 Laboratory Results 03/08/19 08:00 03/08/19 08:00 - Physical Exam Constitutional: no apparent distress, appears nourished, not in pain Eyes: PERRL, anicteric sclera, EOMI Ears, Nose, Mouth, Throat: moist mucous membranes, hearing normal, ears appear normal, no oral mucosal ulcers Cardiovascular: regular rate and rhythym, no murmur, rub, or gallop Respiratory: no respiratory distress, no rales or rhonchi, clear to auscultation Gastrointestinal: normoactive bowel sounds, soft, non-tender abdomen, no palpable masses Genitourinary: no bladder fullness, no bladder tenderness, no renal bruits Skin: no rashes or abrasions, no fluctuance, no induration Musculoskeletal: full muscle strength, no muscle tenderness, normal joint ROM Neurologic: AAOx3, sensation intact bilaterally Psychiatric: interacting appropriately, not anxious, not encephalopathic, thought process linear Lymph, Heme, Immunologic: no cervical LAD, no supraclavicular LAD ICD10 Worksheet Patient Problems: Problems Problem Status Onset Atrial fibrillation Acute Congestive heart failure Acute Elevated troponin Acute Orthopnea Acute Atrial flutter by electrocardiogram Acute Hypertension Acute Shortness of breath Acute
[2019-03-08] MEDS ORDERED: D50W 25 GM/50 ML SYR IVP PRN (12:46)
--- NOTE | 2019-03-08 14:10 | ASMTCMCOM ---
CM Note CM Note Notes: Reviewed chart, pt admitted to hospital overnight for orthopnea and cough. He has a significant cardiac hx and recently dc'd on 02/27. Pt lives at home with his , no therapies ordered. Anticipate he will dc home when medically stable, CM available for any changes. DC Plan: Independent Date Signed: 03/08/2019 02:09 PM Electronically Signed By:Arlene Carvajal RN
[2019-03-08] MEDS ORDERED: PROTOCOL MAGNESIUM 1 DOSE IV PRN (15:32)
[2019-03-08] MEDS ORDERED: PROTOCOL POTASSIUM 1 DOSE MISC PRN (15:32)
--- NOTE | 2019-03-08 16:06 | PDMN ---
Medical Necessity Medical necessity: Change to inpt as of 03/08/19, meets inpt criteria per MD order and [facility] [place] [id number], Atrial Fibrillation, inpt admission indicated for : hemodynamic instability as indicated by: tachycardia that persists despite appropriate treatment, afib w/RVR, HR 98-130 today (most recent HR 120). 78 y/o presenting w/orthopnea, w/hx afib, NIDDM, CAD, valvular disease, last LVEF 43%, CHF, and CKD stafe 3 admitted w/afib w/RVR, possible exacerbation of CHF (BNP 3340), hypokalemic at 3.3, and elevated troponin. IV Lasix diuresis, K replacement, cardio consulting, trend cardiac enzymes. Est LOS>2MN for ongoing management of CHF and afib w/RVR.
[2019-03-08] MEDS ORDERED: POTASSIUM CL 10 MEQ TAB PO ONE ×2 (16:08→19:46)
[2019-03-08] MEDS ORDERED: MAGNESIUM SULF 1 GM/DEXTROSE 100 ML IV ONE (16:11)
[2019-03-08] MEDS: TAMSULOSIN HCL 0.4 MG CAP PO SCH (17:46)
[2019-03-08] MEDS: INSULIN LISPRO 100 UNIT/ML SC SCH (17:58)
[2019-03-08] MEDS: APIXABAN 5 MG TAB PO SCH (20:41)
[2019-03-08] MEDS: METOPROLOL SUCCINATE XR 50 MG TAB PO SCH (20:41)
[2019-03-08] MEDS: AMIODARONE HCL 200 MG TAB PO SCH (20:42)
[2019-03-09] MEDS ORDERED: POTASSIUM CL 10 MEQ TAB PO ONE ×2 (07:41→19:47)
[2019-03-09] MEDS ORDERED: MAGNESIUM SULF 1 GM/DEXTROSE 100 ML IV ONE (07:42)
[2019-03-09] MEDS: FUROSEMIDE 40 MG/4 ML VIAL IVP SCH (07:53)
[2019-03-09] MEDS: APIXABAN 5 MG TAB PO SCH ×2 (07:54→20:55)
[2019-03-09] MEDS: POTASSIUM CL 20 MEQ TAB PO SCH ×2 (07:54→20:55)
[2019-03-09] MEDS: CLOPIDOGREL BISULFATE 75 MG TAB PO SCH (07:54)
[2019-03-09] MEDS: AMIODARONE HCL 200 MG TAB PO SCH ×2 (07:54→20:55)
[2019-03-09] MEDS: EPLERENONE 25 MG TAB PO SCH (07:54)
[2019-03-09] MEDS: METOPROLOL SUCCINATE XR 50 MG TAB PO SCH ×2 (07:55→20:55)
[2019-03-09] MEDS: PANTOPRAZOLE SODIUM 40 MG TAB PO SCH (07:55)
[2019-03-09] MEDS: ROSUVASTATIN CALCIUM 10 MG TAB PO SCH (07:55)
[2019-03-09] MEDS: INSULIN LISPRO 100 UNIT/ML SC SCH ×3 (07:56→18:03)
[2019-03-09] MEDS: CETIRIZINE 10 MG TAB PO SCH (07:56)
--- NOTE | 2019-03-09 09:26 | SOAPPROG ---
PRAMOD Progress Note Assessment/Plan: Assessment: 78 y/o man with following cardiac and medical issues: --afib probably permanent x yrs --CHF with LVEF 43% --moderate to severe MR --CAD s/p SAMANTHA to Diagonal 03/16 --previous renal cancer s/p partial nephrectomy with CRI with baseline serum creatinine of 1.4 --HTN --DM --allergic rhinitis Recent CHRISTINA 02/23/19 showed LVEF 43%, severe left atrial enlargement, moderate to severe MR without MV prolapse, trivial TR and no FARHANA clot or other cardiac thrombus. L/R cardiac cath 02/25/19 got SAMANTHA to small to moderate size Diagonal branch. RHC: RA 10, PA (25), PCWP 13 and CO/CI 6.0/2.9 L/MIN. He saw his clinic hydroelectric powerplant supervisor Dr. Alfredo Marcial four days ago and started on Amiodarone 400mg PO BID with plan for elective CV in two weeks. Admitted with continued dry cough and nightly PND and orthopnea and MORLEY at one block. Denies CP, syncope, TIA sx or fevers. He saw outpatient pulmonary Dr. Ton Ureña and started on Yanet and ordered for PFTs in April 2019. He feels better today with ability to sleep thru night on one pillow with no PND or orthopnea. His cough is improving but not gone. Denies near syncope or CP. PLAN: 1)change IV lasix to Lasix 60mg PO qday 2)decrease Amiodarone to 200mg PO BID as QTc a little long on this AM's ECG 3)home tomorrow probably with elective cardioversion with Dr. Alfredo Marcial in 10- 14 days to try to restore NSR after two week Amiodarone oral load. 4)replace K > 4.0. 03/09/19 09:23 Subjective: feels better. Slept last night in flat position. Denies CP, palpitations, PND or syncope. Still dry cough but better. Has not attempted to walk in hallways yet. Objective: Vital Signs Temp Pulse Resp BP Pulse Ox 36.5 C 91 12 142/92 H 91 L 03/09/19 07:10 03/09/19 07:10 03/09/19 07:10 03/09/19 07:10 03/09/19 07:10 Laboratory Results 03/09/19 03:18 03/08/19 03/09/19 03/10/19 05:59 05:59 05:59 Intake Total 570 Output Total 4958 300 Balance -1555 -300 Physical Exam - Physical Exam General Appearance: alert EENT: normal ENT inspection Neck: non-tender Respiratory: lungs clear Cardiac/Chest: systolic murmur (2/6 MALU heard, JVP to 7cm.), irregularly irregular, No edema, No gallop, No JVD Peripheral Pulses: 2+: carotid (R), carotid (L), femoral (R), femoral (L), dorsalis-pedis (R), dorsalis-pedis (L) Abdomen: normal bowel sounds, No guarding, No rebound Skin: warm/dry Extremities: non-tender, No pedal edema Neuro/Psych: alert ICD10 Worksheet Patient Problems: Problems Problem Status Onset Atrial fibrillation Acute Congestive heart failure Acute Elevated troponin Acute Orthopnea Acute Atrial flutter by electrocardiogram Acute Hypertension Acute Shortness of breath Acute
[2019-03-09] MEDS ORDERED: POTASSIUM CL 20 MEQ TAB PO ONE (09:29)
[2019-03-09] MEDS: FUROSEMIDE 40 MG TAB PO SCH (12:33)
--- NOTE | 2019-03-09 12:46 | HOSPPROG ---
Hospitalist Progress Note Assessment/Plan: 78 year old male with afib, cad, admitted with orthopnea and elevated troponin 1. Systolic CHF with exacerbation - may be rate related given ECG which shows afib with RVR and rates around 130 ( my interpretation). known hx of afib, and chf. Last LVEF estimated at around 43% with valvular disease as well. -Discussed with cardiology this am. -change lasix to oral -strict I/O, daily weights, cardiac diet -tele -K replacement to over 4. -cont home medications 2. Atrial fibrillation - Initially with RVR but rates improved now without further intervention. He takes Toprol XL 50 mg BID as well as apixaban and amiodarone as an outpatient. -I reviewed the ECG this morning showing afib but Qtc long - Monitor on telemetry -Decrease amio to 200bid from 400 bid. -Cardiology plans to continue amio load for 2 weeks then cardioversion with Dr. Marcial. 3. Elevated troponin - Possibly demand ischemia from increased HR. He denies chest pain. ECG stable w/ LBBB and AF. - demand ischemia from afib, chf. 4. Cough - This has been present for several months. The patient denies acute infectious symptoms such as fever. He saw Dr. Ureña as an outpatient who thought this may be due to upper airway cough syndrome. 5. CAD - S/p recent stent to mid diagonal branch. He denies acute chest pain. cont home medications. 6. NIDDM - hold glipizide and glucophage. SSI added. 7. CKD, Stage III - review of old records shows hx of renal cancer. renal function at baseline. - Avoid nephrotoxic agents, renally dose medications Diet - cardiac diet Code - Full Ppx - apixaban Dispo - Likely dc home in am to follow up for cardioversion in approx 2 weeks. Subjective: less sob, less orthopnea. Objective: Vital Signs Temp Pulse Resp BP Pulse Ox 36.3 C 107 H 14 110/84 H 94 03/09/19 11:48 03/09/19 11:48 03/09/19 11:48 03/09/19 11:48 03/09/19 11:48 Laboratory Results 03/09/19 03:18 03/08/19 03/09/19 03/10/19 05:59 05:59 05:59 Intake Total 570 Output Total 2125 300 Balance -1555 -300 - Physical Exam Constitutional: no apparent distress, appears nourished, not in pain Eyes: PERRL, anicteric sclera, EOMI Ears, Nose, Mouth, Throat: moist mucous membranes, hearing normal, ears appear normal, no oral mucosal ulcers Cardiovascular: regular rate and rhythym, no murmur, rub, or gallop Respiratory: no respiratory distress, no rales or rhonchi, clear to auscultation Gastrointestinal: normoactive bowel sounds, soft, non-tender abdomen, no palpable masses Genitourinary: no bladder fullness, no bladder tenderness, no renal bruits Skin: no rashes or abrasions, no fluctuance, no induration Musculoskeletal: full muscle strength, no muscle tenderness, normal joint ROM Neurologic: AAOx3, sensation intact bilaterally Psychiatric: interacting appropriately, not anxious, not encephalopathic, thought process linear Lymph, Heme, Immunologic: no cervical LAD, no supraclavicular LAD ICD10 Worksheet Patient Problems: Problems Problem Status Onset Atrial fibrillation Acute Congestive heart failure Acute Elevated troponin Acute Orthopnea Acute Atrial flutter by electrocardiogram Acute Hypertension Acute Shortness of breath Acute
--- NOTE | 2019-03-09 16:01 | CPEKG ---
Test Reason : OPEN Blood Pressure : / mmHG Vent. Rate : 090 BPM Atrial Rate : 141 BPM P-R Int : 167 ms QRS Dur : 148 ms QT Int : 459 ms P-R-T Axes : 000 -59 -24 degrees QTc Int : 562 ms Atrial fibrillation Left bundle branch block PVC Confirmed by Kyler Morales ([id number]) on 03/09/2019 4:01:13 PM Referred By: David Gustafson Confirmed By:Kyler Morales
[2019-03-09] MEDS: TAMSULOSIN HCL 0.4 MG CAP PO SCH (18:13)
[2019-03-10] MEDS ORDERED: POTASSIUM CL 10 MEQ TAB PO ONE (07:07)
--- NOTE | 2019-03-10 07:40 | CPEKG ---
Test Reason : OPEN Blood Pressure : / mmHG Vent. Rate : 126 BPM Atrial Rate : 219 BPM P-R Int : 094 ms QRS Dur : 145 ms QT Int : 407 ms P-R-T Axes : 000 -57 086 degrees QTc Int : 590 ms Atrial fibrillation Left bundle branch block Confirmed by Gretchen Colindres ([id number]) on 03/10/2019 7:40:29 AM Referred By: Gretchen Colindres Confirmed By:Gretchen Colindres
[2019-03-10] MEDS: APIXABAN 5 MG TAB PO SCH ×2 (08:04→20:34)
[2019-03-10] MEDS: POTASSIUM CL 20 MEQ TAB PO SCH ×2 (08:04→20:34)
[2019-03-10] MEDS: INSULIN LISPRO 100 UNIT/ML SC SCH ×3 (08:04→19:09)
[2019-03-10] MEDS: PANTOPRAZOLE SODIUM 40 MG TAB PO SCH (08:04)
[2019-03-10] MEDS: CETIRIZINE 10 MG TAB PO SCH (08:04)
[2019-03-10] MEDS: FUROSEMIDE 40 MG TAB PO SCH (08:05)
[2019-03-10] MEDS: METOPROLOL SUCCINATE XR 50 MG TAB PO SCH ×2 (08:05→20:34)
[2019-03-10] MEDS: EZETIMIBE 10 MG TAB PO SCH (08:05)
[2019-03-10] MEDS: EPLERENONE 25 MG TAB PO SCH (08:05)
[2019-03-10] MEDS: AMIODARONE HCL 200 MG TAB PO SCH ×2 (08:05→20:34)
[2019-03-10] MEDS: CLOPIDOGREL BISULFATE 75 MG TAB PO SCH (08:05)
--- NOTE | 2019-03-10 10:05 | PDCARPN ---
Cardiology Progress Note Chief Complaint: SOB Assessment/Plan: Assessment: The patient is a 78 y/o M with a history of moderate to severe MR, CAD s/p stenting to the diag on 02/25, persistent a.fib on Eliquis, and systolic CHF with a EF of 43% admitted with a.fib/flutter with RVR and heart failure. He was started on Amiodarone 400mg BID one week ago by Dr. Marcial with plans for a CV in 4 weeks. His QTc is prolonged and therefore we will attempt CV this afternoon. He has diuresed and is close to his baseline. He had one episode of SOB while sitting yesterday but denies any today. He denies any further PND or orthopnea. Plan: 1. Atrial fibrillation- likely permanent. On Amio x7 days. Will attempt CV this afternoon and reassess Amio with a long QTc. rates are a little fast today. Reassess post CV. Continue Eliquis which has been uninterrupted for the past year. 2. Moderate to severe MR 3. CAD s/p stenting to the diag on 02/25- on Plavix 4. Systolic CHF- on Lasix 60mg daily. Close to baseline. BNP is down from 3300 to 1800 5. HTN- well controlled. 6. CRI- cr of 1.4 currently 1.7. 7. DM 8. Long QTc- reassess post CV. May need to d/c Amiodarone. 03/10/19 10:12 Subjective: Complained of one episode of SOB while sitting yesterday. He denies any further SOB. He is complaining of a chronic dry cough. Reviewed/Discussed With: hospitalist, multidisciplinary team Objective: Vital Signs (8 Hrs) Temp Pulse Resp BP Pulse Ox 03/10/19 07:20 36.5 C 87 13 131/90 H 96 03/10/19 03:22 36.4 C 94 20 116/96 H 92 Intake/Output (24 Hrs) 03/09/19 03/10/19 03/11/19 05:59 05:59 05:59 Intake Total 570 830 Output Total 2124 2199 Balance -1555 -1370 Intake: Oral (ml) 470 830 IV Intake (ml) 100 Output: Urine (ml) 2124 2199 Urinal 2124 2199 Other: Weight 81.647 kg 81.828 kg Number of Voids Urinal 3 Result Diagrams: 03/08/19 08:00 03/10/19 03:21 Telemetry: a.fib/flutter with rates 80-120 - Physical Exam Constitutional: healthy appearing, no apparent distress Cardiovascular: systolic murmur, irregularly irregular Peripheral Pulses: 2+: dorsalis-pedis (R), dorsalis-pedis (L) Respiratory: clear to auscultate bilat, no crackles, no wheezes Skin: no edema Neurologic: AAOx3 ICD10 Worksheet Patient Problems: Problems Problem Status Onset Atrial fibrillation Acute Congestive heart failure Acute Elevated troponin Acute Orthopnea Acute Atrial flutter by electrocardiogram Acute Hypertension Acute Shortness of breath Acute
[2019-03-10] MEDS ORDERED: ATROPINE SULFATE 1 MG/10 ML SYR IVP ONE (10:11)
--- NOTE | 2019-03-10 14:36 | HOSPPROG ---
Hospitalist Progress Note Assessment/Plan: 78 yo M w chf, afib 1. Systolic CHF with exacerbation - Last LVEF estimated at around 43% with valvular disease as well. Discussed with cardiology this am. euvolemic 2. Atrial fibrillation - Initially with RVR but rates improved now without further intervention. He takes Toprol XL 50 mg BID as well as apixaban and amiodarone as an outpatient. I reviewed the ECG this morning showing afib but Qtc long Decrease amio to 200bid from 400 bid. cardioversion today 3. Elevated troponin - Possibly demand ischemia from increased HR. He denies chest pain. ECG stable w/ LBBB and AF. demand ischemia from afib, chf. 4. Cough - This has been present for several months. The patient denies acute infectious symptoms such as fever. He saw Dr. Ureña as an outpatient who thought this may be due to upper airway cough syndrome. 5. CAD - S/p recent stent to mid diagonal branch. He denies acute chest pain. cont home medications. 6. NIDDM - hold glipizide and glucophage. SSI added. 7. CKD, Stage III -h/o partial nephrectomy w baseline cr 1-1.4 1.7 today hold lasix repeat in AM Subjective: case d/w jorge del castillo, cardiology PA. breathing improved Objective: Vital Signs Temp Pulse Resp BP Pulse Ox 36.4 C 96 12 128/94 H 97 03/10/19 11:11 03/10/19 11:11 03/10/19 11:11 03/10/19 11:11 03/10/19 11:11 Laboratory Results 03/10/19 03:21 03/09/19 03/10/19 03/11/19 05:59 05:59 05:59 Intake Total 570 830 Output Total 4666 2200 Balance -1555 -1370 - Physical Exam Constitutional: no apparent distress, appears nourished Eyes: PERRL, anicteric sclera Ears, Nose, Mouth, Throat: moist mucous membranes, hearing normal Cardiovascular: irregularly irregular Respiratory: no respiratory distress, no rales or rhonchi, No inspiratory crackles Gastrointestinal: normoactive bowel sounds, soft, non-tender abdomen Genitourinary: no bladder fullness, No parker in urethra Skin: warm, normal color Musculoskeletal: full muscle strength ICD10 Worksheet Patient Problems: Problems Problem Status Onset Atrial fibrillation Acute Congestive heart failure Acute Elevated troponin Acute Orthopnea Acute Atrial flutter by electrocardiogram Acute Hypertension Acute Shortness of breath Acute
--- NOTE | 2019-03-10 16:32 | PDANEPAE ---
ANE History of Present Illness CHRISTINA, Synchronized CV ANE Past Medical History - Cardiovascular History Hx Hypertension: Yes Hx Arrhythmias: Yes Hx Chest Pain: No Hx Coronary Artery / Peripheral Vascular Disease: Yes Hx CHF / Valvular Disease: Yes Hx Palpitations: No Cardiovascular History Comment: Chronic A fib. HPL - Pulmonary History Hx COPD: No Hx Asthma/Reactive Airway Disease: No Hx Recent Upper Respiratory Infection: No Hx Oxygen in Use at Home: No Hx Sleep Apnea: No - Neurologic History Hx Cerebrovascular Accident: No Hx Seizures: No Hx Dementia: No - Endocrine History Hx Diabetes: Yes Hypothyroid: No Hyperthyroid: No Obesity: mild Endocrine History Comment: dm2 x4 years - Renal History Hx Renal Disorders: Yes Renal History Comment: 2009 partial r nephrectomt. CKD, baseline Creatinine 1.4 - Liver History Hx Hepatic Disorders: No - Neurological & Psychiatric Hx Hx Neurological and Psychiatric Disorders: No - Cancer History Hx Cancer: Yes - Congenital Disorder History Hx Congenital Disorders: No - GI History GERD: moderate Hx Gastrointestinal Disorders: No Gastrointestinal History Comment: gerd- controlled - Chronic Pain History Chronic Pain: No - Surgical History Prior Surgeries: tonsilectomy 5 yo,. 2011 partial r nephrectomy. oral impants x 3 most recent 12/14 ANE Review of Systems Review of Systems: ANE Patient History - Allergies Allergies/Adverse Reactions: fluticasone [From Flovent Diskus] Allergy (Verified 03/08/19 09:28) Penicillins Allergy (Verified 03/08/19 01:40) - Home Medications Home Medications: Ezetimibe [Zetia 10 MG (*)] 10 mg PO Q2D 10/05/16 [Last Taken Unknown] Omeprazole 20 mg PO DAILY 10/05/16 [Last Taken 02/22/19] Rosuvastatin Calcium [Crestor 20mg (*)] 5 mg PO Q2D 10/05/16 [Last Taken Unknown ] Tamsulosin HCl [Flomax 0.4 MG (*)] 0.4 mg PO DAILY@1830 10/05/16 [Last Taken ] metFORMIN HCL [Metformin HCl] 1,000 mg PO BIDMEAL 10/05/16 [Last Taken 02/22/19 09:00] Apixaban [Eliquis] 5 mg PO BID 02/22/19 [Last Taken 03/07/19 21:00] glipiZIDE [Glipizide] 2.5 mg PO BIDMEAL 02/22/19 [Last Taken 02/22/19 09:00] Amiodarone HCl [Pacerone] 400 mg PO BID 03/08/19 [Last Taken Unknown] Eplerenone 50 mg PO DAILY 03/08/19 [Last Taken Unknown] Fexofenadine HCl [Yanet Allergy] 180 mg PO DAILY 03/08/19 [Last Taken Unknown] Fluticasone Nasal [Flonase Nasal [place] (RX)] 1 sprays NASAL BID 03/08/19 [Last Taken Unknown] Metoprolol Succinate Xr [Toprol Xl 50 mg (*)] 50 mg PO BID 03/08/19 [Last Taken Unknown] Multivitamins [Multivitamin (*)] 1 each PO DAILY 03/08/19 [Last Taken Unknown] - Anes Hx Anes Hx: no prior problems - Smoking Hx Smoking Status: Never smoked - Family Anes Hx Family Anes Hx: none ANE Labs/Vital Signs - Labs Result Diagrams: 03/08/19 08:00 03/10/19 03:21 - Vital Signs Blood Pressure: 146/86 Heart Rate: 91 Respiratory Rate: 15 O2 Sat (%): 98 Height: 180.34 cm Weight: 81.828 kg ANE Physical Exam - Airway Neck exam: decreased ROM Mouth exam: normal dental/mouth exam (upper front caps) - Pulmonary Pulmonary: clear to auscultation - Cardiovascular Cardiovascular: irregularly irregular - ASA Status ASA Status: III ANE Anesthesia Plan Anesthesia Plan: GA with mask
[2019-03-10] MEDS ORDERED: PROPOFOL 200 MG/20 ML VIAL ONE (16:33)
--- NOTE | 2019-03-10 17:22 | PDTEE1 ---
CHRISTINA Cardioversion Procedure Procedure: electrical cardioversion, transesophageal echo Indications: atrial fibrillation, cardiomyopathy Consent: signed and in chart Anticoagulation: eliquis Procedural Details: Sedation was provided by the anesthesia service. Pads were placed in anterior- posterior position. CHRISTINA probe was advanced and standard images obtained. There is no evidence of left atrial or left atrial appendage thrombus. Synchronized cardioversion attempt #1: 200J Synchronized cardioversion attempt #2: other (250 joules) Synchronized cardioversion attempt #3: other (250 joules) Results: normal sinus rhythm Conclusions: successful CHRISTINA cardioversion Patient Problems: Problems Problem Status Onset Atrial flutter by electrocardiogram Acute Atrial fibrillation Acute Hypertension Acute Shortness of breath Acute Orthopnea Acute Congestive heart failure Acute Elevated troponin Acute
--- NOTE | 2019-03-10 17:35 | POSTANESTH ---
Post Anesthetic Evaluation Cardiovascular Status: Similar to Pre-Op Cond Respiratory Status: Normal, Stable Level of Consciousness/Mental Status: Can Participate in Eval Pain Control: Adequate, Prn Tx Ordered Nausea/Vomiting Control: Adequate, Prn Tx Ordered Complications Possibly Related to Anesthesia: None Noted
[2019-03-10] MEDS: TAMSULOSIN HCL 0.4 MG CAP PO SCH (19:11)
--- NOTE | 2019-03-11 08:46 | ECHO ---
[email or web address] [address] Main: [phone] Echocardiography Examination Transesophageal Name: YOHANA BECKMAN MR#: [id number] Study Date: 03/10/2019 Study Time: 04:31 PM Date of : 1940 Age: 78 year(s) Height: ( ) Weight: ( ) BSA: Gender: Male Examination: CHRISTINA Contrast: Image Quality: Adequate Rhythm: Heart Rate: BP: 151 mmHg/125 mmHg Indication: Atrial Fibrillation Procedure Staff Referring Physician: Validation Technician: Britney Chowdary SAMARA Reading Physician: Tawana Beatty MD Requesting Provider: Ordering Physician: David Gustafson Indication: Atrial Fibrillation Acute complication: None Conclusions 1. The left ventricular systolic function is severely depressed. Estimated ejection fraction is 25-30% with moderate global hypokinesis. 2. There was no thrombus in the left atrial appendage. 3. Negative bubble study indicating no significant interatrial shunting. 4. [id number] mitral regurgitation. 5. Proceed with successful cardioversion. Findings Left Ventricle: EF range is estimated at 25 % - 30 %. Left Atrium: Spontaneous contrast in the left atrium. No thrombus visualized in FARHANA. IAS: An agitated saline study was performed and was negative for intracardiac shunting. Mitral Valve: Mitral valve appears structurally normal. Mild to moderate mitral regurgitation. Aortic Valve: Trivial aortic regurgitation is present. The aortic valve is trileaflet. Pericardium: Trivial pericardial effusion. Patient: YOHANA BECKMAN Study Date: 03/10/2019 Page 1 of 2 04:31 PM Exam Details Procedure Ordered: CHRISTINA Procedure Status: Routine study Image Quality: Adequate Consent: Risks, alternatives of procedure explained to patient, informed consent obtained Probe Insertion: Attending impregnation operator Facility Location: Cardiac Echo 1 (No Signature Object) Patient: YOHANA BECKMAN Study Date: 03/10/2019 Page 2 of 2 04:31 PM [id number]
[2019-03-11] MEDS: CLOPIDOGREL BISULFATE 75 MG TAB PO SCH (09:46)
[2019-03-11] MEDS: POTASSIUM CL 20 MEQ TAB PO SCH (09:46)
[2019-03-11] MEDS: APIXABAN 5 MG TAB PO SCH (09:47)
[2019-03-11] MEDS: METOPROLOL SUCCINATE XR 50 MG TAB PO SCH (09:47)
[2019-03-11] MEDS: ROSUVASTATIN CALCIUM 10 MG TAB PO SCH (09:47)
[2019-03-11] MEDS: PANTOPRAZOLE SODIUM 40 MG TAB PO SCH (09:47)
[2019-03-11] MEDS: EPLERENONE 25 MG TAB PO SCH (09:47)
[2019-03-11] MEDS: CETIRIZINE 10 MG TAB PO SCH (09:49)
[2019-03-11] MEDS: INSULIN LISPRO 100 UNIT/ML SC SCH ×2 (09:49→14:54)
[2019-03-11 11:28] VITALS: BP 121/83
[2019-03-11] MEDS: AMIODARONE HCL 200 MG TAB PO SCH (11:31)
--- NOTE | 2019-03-11 12:36 | HOSPPROG ---
Hospitalist Progress Note Assessment/Plan: 78 yo M w chf, afib 1. Systolic CHF with exacerbation - Last LVEF estimated at around 43% with valvular disease as well. Discussed with cardiology this am. euvolemic 2. Atrial fibrillation - Initially with RVR but rates improved now without further intervention. He takes Toprol XL 50 mg BID as well as apixaban and amiodarone as an outpatient. I reviewed the ECG this morning showing afib but Qtc long Decrease amio to 200bid from 400 bid. cardioversion yesterday 3. Elevated troponin - Possibly demand ischemia from increased HR. He denies chest pain. ECG stable w/ LBBB and AF. demand ischemia from afib, chf. 4. Cough - This has been present for several months. The patient denies acute infectious symptoms such as fever. He saw Dr. Ureña as an outpatient who thought this may be due to upper airway cough syndrome. 5. CAD - S/p recent stent to mid diagonal branch. He denies acute chest pain. cont home medications. 6. NIDDM - hold glipizide and glucophage. SSI added. 7. CKD, Stage III -h/o partial nephrectomy w baseline cr 1-1.4 1.7 rec holding lasix , outpt chem 7 dispo: home today > 30 minutes Subjective: case d/w dr almazan. in sinus (ekg interp by me) Objective: Vital Signs Temp Pulse Resp BP Pulse Ox 36.3 C 76 17 121/83 H 95 03/11/19 11:28 03/11/19 11:28 03/11/19 11:28 03/11/19 11:28 03/11/19 11:28 Laboratory Results 03/11/19 03:20 03/10/19 03/11/19 03/12/19 05:59 05:59 05:59 Intake Total 830 1500 480 Output Total 2200 1225 Balance -1370 275 480 - Physical Exam Constitutional: no apparent distress, appears nourished Eyes: PERRL, anicteric sclera Ears, Nose, Mouth, Throat: moist mucous membranes, hearing normal Cardiovascular: regular rate and rhythym, no murmur, rub, or gallop Respiratory: no respiratory distress, no rales or rhonchi Gastrointestinal: normoactive bowel sounds, soft, non-tender abdomen Genitourinary: No parker in urethra Skin: warm, normal color Neurologic: AAOx3 ICD10 Worksheet Patient Problems: Problems Problem Status Onset Atrial fibrillation Acute Congestive heart failure Acute Elevated troponin Acute Orthopnea Acute Atrial flutter by electrocardiogram Acute Hypertension Acute Shortness of breath Acute
--- NOTE | 2019-03-11 13:08 | PDCARPN ---
<Malorie Mathews - Last Filed: 03/11/19 16:36> Cardiology Progress Note Chief Complaint: EP CONSULT Atrial fibrillation with RVR, cardiomyopathy Assessment/Plan: Assessment: 1. Atrial fibrillation with RVR, persistent: Unknown duration, rates >120bpm on admission (on Toprol 50mg BID and Amiodarone 400mg BID at that time), successful cardioversion yesterday after loading with Amiodarone x1 week. Amiodarone dose reduced to 200mg BID yesterday, he has maintained NSR overnight. Prolonged QRS and QT interval on Amio. [id number] score = 5, he is anticoagulated with Eliquis. 2. Acute on chronic systolic CHF: LVEF 43% by TTE 02/23/2019, 25-30% by CHRISTINA yesterday. 17lbs of fluid off with diuresis over the past 2 weeks. 3. Mitral regurgitation: Mod-severe by echo 02/23, Mild-moderate by CHRISTINA yesterday. Query whether fluid-volume overload may have exacerbated MR in late January. 4. CAD s/p diag PCI 01/2019 5. DM II 6. CRI Plan: We had a complex discussion regarding options for management of Mr. Perez's atrial fibrillation including rate control vs. rhythm control strategies. Given his acute decompensation in the setting of Afib with RVR, we will attempt aggressive rhythm control at this time. Options include medical management with low-dose Amiodarone vs. AV node ablation + BiV PPM +/- ICD vs. cryoballoon PVI. At this time, he will proceed with low-dose amiodarone (200mg daily). Potential side effects of Amiodarone were reviewed with patient in detail. He will have a repeat echocardiogram in 1 week to reevaluate his MR in sinus rhythm while relative euvolemic. He will follow-up with Dr. Marcial after this testing is complete to determine whether additional intervention is required. If he fails treatment with amiodarone, recommend AV node ablation + BiV pacing (with or without ICD based on LVEF and patient preference). Case discussed with Dr. Beatty and Dr. Marcial at the time of consult, who are in agreement with this plan. 03/11/19 16:41 03/11/19 16:45 Objective: Vital Signs (8 Hrs) Temp Pulse Resp BP Pulse Ox 03/11/19 11:28 36.3 C 76 17 121/83 H 95 03/11/19 07:09 36.4 C 73 10 L 128/84 H 94 Intake/Output (24 Hrs) 03/10/19 03/11/19 03/12/19 05:59 05:59 05:59 Intake Total 830 1500 480 Output Total 2200 1225 Balance -1370 275 480 Intake: Oral (ml) 830 1500 480 Output: Urine (ml) 2200 1225 Urinal 2200 1225 Other: Weight 81.828 kg 81.647 kg Intake Quantity Yes Sufficient Number of Voids Urinal 3 Number of Stools Toilet 1 Result Diagrams: 03/08/19 08:00 03/11/19 03:20 Telemetry: NSR - Physical Exam Constitutional: WDWN, no apparent distress Ears, Nose, Mouth, Throat: moist mucous membranes, no oral ulcers, no thrush Neurologic: AAOx3, CN II-XII grossly intact Psychiatric: cooperative, interactive, following commands, not anxious ICD10 Worksheet Patient Problems: Problems Problem Status Onset Atrial fibrillation Acute Atrial flutter by electrocardiogram Acute Congestive heart failure Acute Elevated troponin Acute Hypertension Acute Orthopnea Acute Shortness of breath Acute <Sahil Estes A - Last Filed: 03/12/19 12:56> Cardiology Progress Note Assessment/Plan: Addendum S Meera - patient seen and examined along with VB. I spent 30 minutes with patient going over options mentioned above. I edward Marcial by phone and with Dr. Beatty in person. If patient has recurrent AFIB despite amiodarone, he will undergo BiV PM vs. ICD (placed by Dr. Marcial) and AV node ablation 03/12/19 12:55 Objective: Intake/Output (24 Hrs) 03/11/19 03/12/19 03/13/19 11:59 11:59 11:59 Intake Total 1979 Output Total 1225 Balance 755 Intake: Oral (ml) 1979 Output: Urine (ml) 1225 Urinal 1225 Other: Weight 81.647 kg Intake Quantity Yes Sufficient Result Diagrams: 03/08/19 08:00 03/11/19 03:20
--- NOTE | 2019-03-11 13:13 | CPEKG ---
Test Reason : OPEN Blood Pressure : / mmHG Vent. Rate : 095 BPM Atrial Rate : 126 BPM P-R Int : 132 ms QRS Dur : 141 ms QT Int : 468 ms P-R-T Axes : 000 -63 -05 degrees QTc Int : 589 ms Coarse AFIB vs AFL Ventricular premature complex Confirmed by Sahil Estes ([id number]) on 03/11/2019 1:13:23 PM Referred By: David Gustafson Confirmed By:Sahil Estes
--- NOTE | 2019-03-11 13:18 | CPEKG ---
Test Reason : OPEN Blood Pressure : / mmHG Vent. Rate : 072 BPM Atrial Rate : 072 BPM P-R Int : 231 ms QRS Dur : 147 ms QT Int : 535 ms P-R-T Axes : 052 -54 062 degrees QTc Int : 586 ms Sinus rhythm Prolonged PA interval Left atrial enlargement Nonspecific intraventricular conduction delay Confirmed by Sahil Estes ([id number]) on 03/11/2019 1:17:40 PM Referred By: David Gustafson Confirmed By:Sahil Estes
--- NOTE | 2019-03-11 13:19 | CPEKG ---
Test Reason : OPEN Blood Pressure : / mmHG Vent. Rate : 076 BPM Atrial Rate : 076 BPM P-R Int : 241 ms QRS Dur : 153 ms QT Int : 509 ms P-R-T Axes : 059 -52 015 degrees QTc Int : 573 ms Sinus rhythm Prolonged KS interval Probable left atrial enlargement Nonspecific intraventricular conduction delay Confirmed by Sahil Estes ([id number]) on 03/11/2019 1:19:32 PM Referred By: David Gustafson Confirmed By:Sahil Estes
--- NOTE | 2019-03-11 14:01 | ASDISCHSUM ---
Discharge Information Plan Status:Home with No Needs Medically Cleared to Leave:03/11/2019 Discharge Date:03/11/2019 01:57 PM CM D/C Disposition:Home, Routine, Self-Care ADT D/C Disposition: Projected Discharge Date:03/11/2019 01:57 PM Transportation at D/C: Discharge Delay Reason: Follow-Up Date:03/11/2019 01:57 PM Discharge Slot: Final Diagnosis: Placement Information Patient Contact Information Contact Name:ASHLEY Relationship: Address:[address] City:[place] Alternate Phone: [facility] [address]/Zip Code:[place] [address] Email: Financial Information Financial Class:Medicare Advantage Plans Primary Plan Desc:[employer] GOLD MEDICARE Primary Plan Number:[id number] Secondary Plan Desc: Secondary Plan Number: Assessment Information LACE LACE Length of stay for Answers: 3 days current admission Acuity / Level of Answers: Yes Care: Did the patient have an inpatient admission? Comorbidities - select Answers: Congestive heart failure all that apply Coronary Artery Disease Diabetes (uncontrolled or controlled) Mild liver or renal disease Other Notes: HTN # of Emergency department Answers: 1-2 visits in the last 6 months Score: 15 Date Signed: 03/11/2019 01:58 PM Electronically Signed By:Maggie Lobato RN [facility] CM Progress Note CM Note CM Note Notes: Reviewed chart, pt admitted to hospital overnight for orthopnea and cough. He has a significant cardiac hx and recently dc'd on 02/27. Pt lives at home with his , no therapies ordered. Anticipate he will dc home when medically stable, CM available for any changes. DC Plan: Independent Date Signed: 03/08/2019 02:09 PM Electronically Signed By:Arlene Carvajal RN Case Management Discharge Plan Note Case Management Discharge Discharge Order Complete? Answers: Yes Patient to Obtain Answers: via Family Medications Transportation Arranged Answers: Family/Friends Discharge Comments Notes: 03/11/2019 Case Management Note Pt discharged independent with follow up as directed. Date Signed: 03/11/2019 01:59 PM Electronically Signed By:Maggie Lobato RN Intervention Information Intervention Type:*IM-Signed Date of Service:03/10/2019 10:11 AM Patient Type:Inpatient Staff Member:Kyra Senior Hours: Discipline: Severity: Comment:
--- NOTE | 2019-03-11 14:15 | GDS ---
[f rep st] DISCHARGE SUMMARY DISCHARGE DIAGNOSES: 1. Atrial fibrillation. 2. Systolic congestive heart failure with exacerbation. 3. Elevated troponin. 4. History of coronary artery disease. 5. History of diabetes. 6. History of chronic kidney disease. Baseline creatinine 1.4. HOSPITAL COURSE: Please see admission history and physical by Dr. Gustafson. Following a recent a dmission where he had a diagonal stent placed. He had recently started amiodarone. He presented wit h atrial fibrillation and rapid ventricular response. He was amiodarone loaded, subsequently underwe nt CHRISTINA cardioversion that was successful. He had been on anticoagulants. He was seen by electrophysiology. He was diuresed with a net negativity of 3.5 kg. He is discharged home to hold his Lasix for a couple of days because his creatinine bumped to 1.7 from baseline 1.4. He is having followup with his primary care physician, Dr. Gastelum, in [place]. His amiodarone dose has been reduced to 200 daily. /[id number]/MODL
== END 2019-03-11 13:57 | disposition home or self-care (01) | DRG 291 ==
LOC: INTOOBSV 03:38 → F2W 04:46 → OBSVTOIN 12:49
PROVIDERS: ADMIT Student in an Organized Health Care Education/Training Program; ATTEND Student in an Organized Health Care Education/Training Program
DX: I13.0 Hypertensive heart and chronic kidney disease with heart failure and stage 1 through stage 4 chronic kidney disease, or unspecified chronic kidney disease (principal); I50.23 Acute on chronic systolic (congestive) heart failure; I48.2 Chronic atrial fibrillation; N18.3 Chronic kidney disease, stage 3 (moderate); I34.0 Nonrheumatic mitral (valve) insufficiency; I36.1 Nonrheumatic tricuspid (valve) insufficiency; I44.7 Left bundle-branch block, unspecified; I25.10 Atherosclerotic heart disease of native coronary artery without angina pectoris; E11.9 Type 2 diabetes mellitus without complications; Z95.5 Presence of coronary angioplasty implant and graft; Z79.01 Long term (current) use of anticoagulants; Z85.528 Personal history of other malignant neoplasm of kidney; Z85.828 Personal history of other malignant neoplasm of skin
CPT/HCPCS: 84481-90; 84484-ER; 96374; J1815; J1940; J2704; J3475

== ENCOUNTER 2019-03-21 09:44 | Day surgery (SDC) | payer OTHER ==
[2019-03-21] MEDS ORDERED: fentaNYL 100 MCG/2 ML INJ IVP ONE (09:53)
[2019-03-21] MEDS ORDERED: NS 500 ML IV ONE (09:53)
[2019-03-21] MEDS ORDERED: MIDAZOLAM 2 MG/2 ML VIAL IVP ONE (09:53)
[2019-03-21] MEDS ORDERED: ATROPINE SULFATE 1 MG/10 ML SYR IVP ONE (09:53)
[2019-03-21 10:40] LABS: INR 1.57 (0.83-1.16); PROTIME(PATIENT) 18.1 SEC (12.0-15.0)
[2019-03-21] MEDS ORDERED: PROPOFOL 200 MG/20 ML VIAL ONE (10:54)
--- NOTE | 2019-03-21 10:56 | PDHPUP ---
History & Physical Update H&P update statement: This history and physical update is based on an assessment of the patient which was completed after admission or registration (within 24 hours), but prior to the surgery/procedure. H&P update: H&P reviewed & patient examined
--- NOTE | 2019-03-21 10:56 | PDANEPAE ---
ANE History of Present Illness afib, here for cardioversion ANE Past Medical History - Cardiovascular History Hx Hypertension: Yes Hx Arrhythmias: Yes Hx Chest Pain: No Hx Coronary Artery / Peripheral Vascular Disease: Yes Hx CHF / Valvular Disease: Yes Hx Palpitations: No Cardiovascular History Comment: Chronic A fib. HPL - Pulmonary History Hx COPD: No Hx Asthma/Reactive Airway Disease: No Hx Recent Upper Respiratory Infection: No Hx Oxygen in Use at Home: No Hx Sleep Apnea: No - Neurologic History Hx Cerebrovascular Accident: No Hx Seizures: No Hx Dementia: No - Endocrine History Hx Diabetes: Yes Endocrine History Comment: dm2 x4 years - Renal History Hx Renal Disorders: Yes Renal History Comment: 2009 partial r nephrectomt. CKD, baseline Creatinine 1.4 - Liver History Hx Hepatic Disorders: No - Neurological & Psychiatric Hx Hx Neurological and Psychiatric Disorders: No - Cancer History Hx Cancer: Yes - Congenital Disorder History Hx Congenital Disorders: No - GI History Hx Gastrointestinal Disorders: No Gastrointestinal History Comment: gerd- controlled - Chronic Pain History Chronic Pain: No - Surgical History Prior Surgeries: tonsilectomy 5 yo,. 2010 partial r nephrectomy. oral impants x 3 most recent 12/14 ANE Review of Systems Review of Systems: ANE Patient History - Allergies Allergies/Adverse Reactions: fluticasone [From Flovent Diskus] Allergy (Verified 03/08/19 09:28) Penicillins Allergy (Verified 03/08/19 01:40) - Home Medications Home Medications: Ezetimibe [Zetia 10 MG (*)] 10 mg PO Q2D 10/05/16 [Last Taken 03/19/19 18:00] Omeprazole 20 mg PO DAILY 10/05/16 [Last Taken 03/21/19 07:00] Rosuvastatin Calcium [Crestor 20mg (*)] 5 mg PO Q2D 10/05/16 [Last Taken 18:00] Tamsulosin HCl [Flomax 0.4 MG (*)] 0.4 mg PO DAILY@1830 10/05/16 [Last Taken 18:00] metFORMIN HCL [Metformin HCl] 1,000 mg PO BIDMEAL 10/05/16 [Last Taken 03/20/19 18:00] Apixaban [Eliquis] 5 mg PO BID 02/22/19 [Last Taken 03/21/19 07:00] glipiZIDE [Glipizide] 2.5 mg PO BIDMEAL 02/22/19 [Last Taken 03/20/19 18:00] Eplerenone 50 mg PO DAILY 03/08/19 [Last Taken 03/21/19 07:00] Fexofenadine HCl [Yanet Allergy] 180 mg PO DAILY 03/08/19 [Last Taken 08:00] Fluticasone Nasal [Flonase Nasal [place]] 1 sprays NASAL BID 03/08/19 [Last Taken 03/20/19 18:00] Metoprolol Succinate Xr [Toprol Xl 50 mg (*)] 50 mg PO BID 03/08/19 [Last Taken 03/21/19 07:00] Multivitamins [Multivitamin (*)] 1 each PO DAILY 03/08/19 [Last Taken 03/07/19 08:00] - Smoking Hx Smoking Status: Never smoked ANE Labs/Vital Signs - Labs Result Diagrams: 03/21/19 10:20 - Vital Signs Height: 180 cm Weight: 86.5 kg ANE Physical Exam - Airway Neck exam: decreased ROM Mallampati Score: Class 2 Mouth exam: normal dental/mouth exam - Pulmonary Pulmonary: no respiratory distress, no rales or rhonchi - Cardiovascular Cardiovascular: regular rate and rhythym, irregularly irregular - ASA Status ASA Status: III ANE Anesthesia Plan Anesthesia Plan: GA with mask Total IV Anesthesia: Yes
--- NOTE | 2019-03-21 11:09 | PDCARD ---
Cardioversion Procedure Procedure: electrical cardioversion Indications: atrial fibrillation Consent: signed and in chart Anticoagulation: eliquis Procedural Details: Pads were placed in anterior-posterior position. Synchronized cardioversion attempt #1: 200J Results: normal sinus rhythm Conclusions: successful cardioversion (1.f/u with dr corrigan as scheduled...continue current meds) Patient Problems: Problems Problem Status Onset Atrial fibrillation Acute Atrial flutter by electrocardiogram Acute Congestive heart failure Acute Elevated troponin Acute Hypertension Acute Orthopnea Acute Shortness of breath Acute
--- NOTE | 2019-03-21 11:15 | POSTANESTH ---
Post Anesthetic Evaluation Cardiovascular Status: Normal, Stable Respiratory Status: Normal, Stable Level of Consciousness/Mental Status: Can Participate in Eval, Alert and Oriented Pain Control: Adequate, Prn Tx Ordered Nausea/Vomiting Control: Adequate, Prn Tx Ordered Complications Possibly Related to Anesthesia: None Noted
--- NOTE | 2019-03-28 10:47 | CPEKG ---
Test Reason : OPEN Blood Pressure : / mmHG Vent. Rate : 110 BPM Atrial Rate : 147 BPM P-R Int : 164 ms QRS Dur : 156 ms QT Int : 439 ms P-R-T Axes : 000 -54 047 degrees QTc Int : 595 ms Atrial fibrillation Left bundle branch block Confirmed by Aleks Lobo ([id number]) on 03/28/2019 10:47:00 AM Referred By: KRISTIE NGO Confirmed By:Aleks Lobo
--- NOTE | 2019-03-28 10:51 | CPEKG ---
Test Reason : OPEN Blood Pressure : / mmHG Vent. Rate : 070 BPM Atrial Rate : 070 BPM P-R Int : 235 ms QRS Dur : 147 ms QT Int : 478 ms P-R-T Axes : 065 -49 -13 degrees QTc Int : 516 ms Sinus rhythm Prolonged [place] interval Left bundle branch block Confirmed by Aleks Lobo ([id number]) on 03/28/2019 10:50:53 AM Referred By: KRISTIE NGO Confirmed By:Aleks Lobo
== END 2019-03-21 12:18 | disposition home or self-care (01) ==
LOC: FCATH 09:44
PROVIDERS: ATTEND Internal Medicine Cardiovascular Disease
PROC: 5A2204Z Restoration of Cardiac Rhythm, Single (ICD-10-PCS; principal; 2019-03-21)
DX: I48.0 Paroxysmal atrial fibrillation (principal); Z79.01 Long term (current) use of anticoagulants; I42.8 Other cardiomyopathies; I25.10 Atherosclerotic heart disease of native coronary artery without angina pectoris; Z95.5 Presence of coronary angioplasty implant and graft; I34.0 Nonrheumatic mitral (valve) insufficiency; I10 Essential (primary) hypertension
CPT/HCPCS: J2704

== ENCOUNTER 2019-03-22 10:15 | Emergency (ER) | payer OTHER ==
--- NOTE | 2019-03-22 10:49 | EDPHY ---
H & P Time Seen by Provider: 03/22/19 10:28 HPI/ROS: HPI Shortness of breath. 78-year-old male by private vehicle with his . He has a complicated past medical history including coronary artery disease, renal insufficiency, atrial fibrillation with electrocardioversion yesterday by his tub chucker Dr. David Garcia. He was started on amiodarone about 3 weeks ago. He reports that for the last week he has had a difficult time sleeping. He sleeps in a recliner at about a 45 degree angle. He presents to the emergency department this morning complaining of increased shortness of breath. He states that this is much worse when he is laying flat. He states it is better when he is upright. He does have shortness of breath with exertion but studies that he feels fairly comfortable walking around his house. He denies any associated chest pain. He has had some relief from a shortness of breath when given IV Lasix in the hospital. He took 20 mg of oral Lasix this morning. ROS: Constitutional: No fever, no chills. No weakness. Eyes: No discharge. No changes in vision. ENT: No sore throat. No nasal congestion or rhinorrhea. Respiratory: No cough. As above. Cardiac: No chest pain, no palpitations. Gastrointestinal: No abdominal pain, no vomiting, no diarrhea. Genitourinary: No hematuria. No dysuria or increased frequency with urination. Musculoskeletal: No back pain. No neck pain. No myalgias or arthralgias. Skin: No rashes. Neurological: No headache. No focal weakness or altered sensation. Past medical history: Atrial fibrillation on Eliquis, congestive heart failure , coronary artery disease, chronic kidney disease with a baseline creatinine of 1.4, type 2 diabetes, elevated troponin. Social history: Nonsmoker. No alcohol. Here with his . Physical Exam: General Appearance: Alert, he is mildly anxious but not in distress. This patient is responding to questions appropriately and in full sentences. Mildly dyspneic. This patient appears well-hydrated and well-nourished. Eyes: Pupils equal and round no pallor or injection. No lid edema, erythema or injection. Respiratory: There are no retractions, lungs are clear to auscultation with good air movement bilaterally. No tachypnea. Cardiovascular: Regular rate and rhythm. No murmur appreciated. Gastrointestinal: Abdomen is soft and nontender, no masses, bowel sounds normal. No focal tenderness at McBurney's point. No Hartman sign. Neurological: Motor sensory function is grossly intact. Cranial nerves are normal. Gait is normal. Skin: Warm and dry, no rashes. Musculoskeletal: Neck is supple and nontender. Extremities are symmetrical. No significant lower extremity edema. All joints range without pain or impingement. Psychiatric: No agitation. No depression. Database: EKG: EKG time is 10:37 a.m.; EKG shows a sinus rhythm with nonspecific intraventricular conduction delay.. PVCs noted. Prolonged NV Interval. The QT intervals are within normal limits. Left ventricular hypertrophy. QS waves noted in the anterior precordial leads. No evidence of right heart strain. Interpreted by me. Imaging: Chest x-ray AP portable: Emphysematous picture, chronic findings without significant change from prior study on March 08 of this year. Interpreted by me. Procedures: Emergency department course: Triage vital signs reviewed and are unremarkable. The patient is afebrile. Room air pulse oximetry is 94-96%. IV was placed. He was placed on a bus monitor. Despite his normal pulse oximetries he is complaining of being dyspneic. He was placed on nasal cannula oxygen at 2 L. Pulse oximetry up to 98 % with this. An EKG was obtained and reviewed by myself. 11:20 a.m., the patient was re-evaluated, resting comfortably at this time. On 2 L of nasal cannula oxygen is 98%. On room air he is been 94%. Results of his emergency department diagnostic testing discussed with him and his . I discussed admission for observation overnight. He is adamant that he does not want to do this. In my professional opinion he understands the risks of declining admission. He has had a chronic cough since October. He has been on Yanet for this most recently with not significant relief. I will prescribe him Tessalon Perles. He also states that he has been having a hard time sleeping lately not because of feeling short of breath just because he lies awake at night. I will prescribe him a low-dose short course of Ambien. He feels comfortable with this plan. Return to emergency department precautions were stressed to both him and his . All of their questions were answered. He will follow up with his primary care physician early next week for re- evaluation. All of his questions were answered. He was discharged from the emergency department in good condition. Differential Diagnosis: The differential diagnosis on this patient includes but is not limited to anxiety reaction, congestive heart failure exacerbation, acute coronary syndrome. Atrial fibrillation with RVR, ventricular tachycardia, pulmonary embolism unlikely. This represents a partial list of diagnoses considered. These considerations are based on history, physical exam, past history, reassessment and diagnostic testing. Smoking Status: Never smoked Constitutional: Initial Vital Signs Temperature (C) 36.9 C 03/22/19 10:17 Heart Rate 81 03/22/19 10:17 Respiratory Rate 16 03/22/19 10:17 Blood Pressure 132/84 H 03/22/19 10:17 O2 Sat (%) 96 03/22/19 10:17 O2 Delivery Mode Room Air O2 (L/minute) 2 Allergies/Adverse Reactions: fluticasone [From Flovent Diskus] Allergy (Verified 03/08/19 09:28) Penicillins Allergy (Verified 03/08/19 01:40) Home Medications: Medication Instructions Recorded Ezetimibe [Zetia 10 MG (*)] 10 mg PO Q2D 10/05/16 Omeprazole 20 mg PO DAILY 10/05/16 Rosuvastatin Calcium [Crestor 20mg 5 mg PO Q2D 10/05/16 (*)] Tamsulosin HCl [Flomax 0.4 MG (*)] 0.4 mg PO DAILY@1830 10/05/16 metFORMIN HCL [Metformin HCl] 1,000 mg PO BIDMEAL 10/05/16 Apixaban [Eliquis] 5 mg PO BID 02/22/19 glipiZIDE [Glipizide] 2.5 mg PO BIDMEAL 02/22/19 Clopidogrel Bisulfate [Plavix (*)] 75 mg PO DAILY tab 02/27/19 Potassium Cl [Klor-Con 10 meq (RX)] 10 meq PO DAILY #10 tab 02/27/19 Eplerenone 50 mg PO DAILY 03/08/19 Fexofenadine HCl [Yanet Allergy] 180 mg PO DAILY 03/08/19 Fluticasone Nasal [Flonase Nasal 1 sprays NASAL BID 03/08/19 [place]] Metoprolol Succinate Xr [Toprol Xl 50 mg PO BID 03/08/19 50 mg (*)] Multivitamins [Multivitamin (*)] 1 each PO DAILY 03/08/19 Amiodarone HCl [Pacerone (*)] 200 mg PO DAILY #30 tab 03/11/19 Furosemide [Lasix 20 MG (*)] 20 mg PO DAILY #30 tab 03/11/19 Benzonatate [Tessalon Pearles] 100 mg PO TID #12 cap 03/22/19 Zolpidem Tartrate 5 mg PO HS #10 tablet 03/22/19 Medical Decision Making - Data Points Laboratory Results: Laboratory Results 03/22/19 10:40 03/22/19 10:40 Point of Care Test Results: Chemistry 03/22/19 10:44 POC Troponin I 0.03 ng/mL ng/mL (0.00-0.08) Departure - Departure Disposition: Home, Routine, Self-Care Clinical Impression: Dyspnea, History of coronary artery disease, Chronic renal insufficiency, Insomnia Condition: Good Instructions: Heart Failure (ED), Dyspnea (ED) Additional Instructions: Read and follow provided instructions. Follow-up with your primary care physician on Sunday or Sunday of this coming week for re-evaluation as discussed. Take medication as prescribed for cough. Continue to take your regular medications as prescribed. I will prescribe you a short course of Ambien/zolpidem to help you sleep. Take only as needed for sleeping. Start with 5 mg before bed at night. Most important, return to the emergency department immediately for worsening symptoms, worsening shortness of breath, chest pain, palpitations or other serious concerns. Referrals: Rogers Gastelum MD [Primary Care Provider] - As per Instructions Prescriptions: Benzonatate [Tessalon Pearles] 100 mg PO TID #12 cap Zolpidem Tartrate 5 mg PO HS #10 tablet
[2019-03-22 10:57] LABS: PLATELET COUNT 163 10^3/uL (150-400)
[2019-03-22 11:06] LABS: INR 1.5 (0.83-1.16); PROTIME(PATIENT) 17.4 SEC (12.0-15.0)
[2019-03-22 11:39] VITALS: BP 127/79
--- NOTE | 2019-03-23 23:41 | CPEKG ---
Test Reason : OPEN Blood Pressure : / mmHG Vent. Rate : 078 BPM Atrial Rate : 079 BPM P-R Int : 235 ms QRS Dur : 145 ms QT Int : 438 ms P-R-T Axes : 067 -49 -16 degrees QTc Int : 499 ms Sinus rhythm Paired ventricular premature complexes Prolonged DE interval Nonspecific IVCD with LAD Left ventricular hypertrophy Anterior infarct, old Confirmed by Rosina Amezcua ([id number]) on 03/23/2019 11:41:07 PM Referred By: Rosina Amezcua Confirmed By:Rosina Amezcua
== END 2019-03-22 11:43 | disposition home or self-care (01) ==
DX: R06.00 Dyspnea, unspecified (principal); N18.9 Chronic kidney disease, unspecified; I25.10 Atherosclerotic heart disease of native coronary artery without angina pectoris; G47.00 Insomnia, unspecified; I48.91 Unspecified atrial fibrillation; I50.9 Heart failure, unspecified; E11.9 Type 2 diabetes mellitus without complications; Z79.01 Long term (current) use of anticoagulants
CPT/HCPCS: 84484-ER

== ENCOUNTER 2019-03-25 04:23 | Emergency (ER) | payer OTHER ==
--- NOTE | 2019-03-25 04:48 | EDPHY ---
H & P Stated Complaint: Pt reports only sleeping 2night out of the last 9 Time Seen by Provider: 03/25/19 04:47 HPI/ROS: HPI CHIEF COMPLAINT: Can't sleep. HISTORY OF PRESENT ILLNESS: This patient is a 78-year-old male, history of AFib , he started amiodarone of month ago, he states for the past 9 nights he has had very little sleep. Patient believes that is the amiodarone causing him to not sleep. He states over the last 9 nights he has gotten very few hours of sleep. He denies any chest pain or shortness of breath, denies abdominal pain. Patient was given a prescription for Ambien. However does not take any. Past Medical History: Significant medical history for coronary artery disease, renal insufficiency, CHF, baseline creatinine 1.4, diabetes Past Surgical History: Denies recent surgery. Social History: Denies drugs alcohol tobacco. Retired. Family History: Noncontributory Patient's farm reporter is Dr. Marcial. ROS REVIEW OF SYSTEMS: 10 Systems were reviewed and negative with the exception of the elements mentioned in the history of present illness. Exam Constitutional triage nursing summary reviewed, vital signs reviewed, awake/ alert. Eyes normal conjunctivae and sclera, EOMI, PERRLA. HENT normal inspection, atraumatic, moist mucus membranes, no epistaxis, neck supple/ no meningismus, no raccoon eyes. Respiratory clear to auscultation bilaterally, normal breath sounds, no respiratory distress, no wheezing. Cardiovascular irregular, irregular rhythm, no murmur, no edema, distal pulses normal. Gastrointestinal soft, non-tender, no rebound, no guarding, normal bowel sounds, no distension, no pulsatile mass. Genitourinary no CVA tenderness. Musculoskeletal no midline vertebral tenderness, full range of motion, no calf swelling, no tenderness of extremities, no meningismus, good pulses, neurovascularly intact. Skin pink, warm, & dry, no rash, skin atraumatic. Neurologic awake, alert and oriented x 3, AAOx3, moves all 4 extremities equally, motor intact, sensory intact, CN II-XII intact, normal cerebellar, normal vision, normal speech. Psychiatric normal mood/affect. Heme/Lymph/Immune no lymphadenopathy. Differential Diagnosis: Includes but is not limited to in a particular order anxiety, medication side effect. Medical Decision Making: Plan for this patient will talk to his farm reporter. Re-evaluation: 0520: I have consult Dr. Marcial his farm reporter discussed case in detail. Does not believe it is the patient's amiodarone however will follow up with him today. He does recommend he tries a dose of Ambien to sleep. He will call him today to follow-up. No further recommendations in the emergency room Patient here in the ER stating that he can't sleep for the past 9 days believes it be his amiodarone that he takes for AFib. No other new medications at this time. He denies any chest pain shortness of breath or feeling ill. Denies dyspnea on exertion or PND. Patient just simply states he is frustrated that he cannot sleep. He believes it is his amiodarone. He has a prescription for Ambien. I do recommend he tried a dose of this. Additionally follow up with Cardiology on outpatient basis. Source: Patient - Personal History Current Tetanus/Diphtheria Vaccine: Yes Current Tetanus Diphtheria and Acellular Pertussis (TDAP): Yes - Medical/Surgical History Hx Asthma: No Hx Chronic Respiratory Disease: No Hx Diabetes: Yes Hx Cardiac Disease: Yes Hx Renal Disease: Yes Hx Cirrhosis: No Hx Alcoholism: No Hx HIV/AIDS: No Hx Splenectomy or Spleen Trauma: No Other PMH: HTN, D.M. A-FIB, KIDNEY REMOVED FOR CA. mitral valve - Social History Smoking Status: Never smoked Constitutional: Initial Vital Signs Temperature (C) 36.6 C 03/25/19 04:25 Heart Rate 97 03/25/19 04:25 Respiratory Rate 16 03/25/19 04:25 Blood Pressure 135/105 H 03/25/19 04:25 O2 Sat (%) 96 03/25/19 04:25 O2 Delivery Mode Room Air Allergies/Adverse Reactions: fluticasone [From Flovent Diskus] Allergy (Verified 03/25/19 04:27) Penicillins Allergy (Verified 03/25/19 04:27) Home Medications: Medication Instructions Recorded Ezetimibe [Zetia 10 MG (*)] 10 mg PO Q2D 10/05/16 Omeprazole 20 mg PO DAILY 10/05/16 Rosuvastatin Calcium [Crestor 20mg 5 mg PO Q2D 10/05/16 (*)] Tamsulosin HCl [Flomax 0.4 MG (*)] 0.4 mg PO DAILY@1830 10/05/16 metFORMIN HCL [Metformin HCl] 1,000 mg PO BIDMEAL 10/05/16 Apixaban [Eliquis] 5 mg PO BID 02/22/19 glipiZIDE [Glipizide] 2.5 mg PO BIDMEAL 02/22/19 Clopidogrel Bisulfate [Plavix (*)] 75 mg PO DAILY tab 02/27/19 Potassium Cl [Klor-Con 10 meq (RX)] 10 meq PO DAILY #10 tab 02/27/19 Eplerenone 50 mg PO DAILY 03/08/19 Fexofenadine HCl [Yanet Allergy] 180 mg PO DAILY 03/08/19 Fluticasone Nasal [Flonase Nasal 1 sprays NASAL BID 03/08/19 [place]] Metoprolol Succinate Xr [Toprol Xl 50 mg PO BID 03/08/19 50 mg (*)] Multivitamins [Multivitamin (*)] 1 each PO DAILY 03/08/19 Amiodarone HCl [Pacerone (*)] 200 mg PO DAILY #30 tab 03/11/19 Furosemide [Lasix 20 MG (*)] 20 mg PO DAILY #30 tab 03/11/19 Benzonatate [Tessalon Pearles] 100 mg PO TID #12 cap 03/22/19 Zolpidem Tartrate 5 mg PO HS #10 tablet 03/22/19 Departure - Departure Disposition: Home, Routine, Self-Care Clinical Impression: Insomnia Condition: Good Instructions: Insomnia (ED) Additional Instructions: 1. Return to the emergency room if worsening symptoms 2. Follow up with your farm reporter. Referrals: Rogers Gastelum MD [Primary Care Provider] - As per Instructions Cortez Marcial MD [Medical Doctor] - As per Instructions
[2019-03-25 05:40] VITALS: BP 141/109
== END 2019-03-25 05:46 | disposition home or self-care (01) ==
DX: G47.00 Insomnia, unspecified (principal); I48.91 Unspecified atrial fibrillation; E11.9 Type 2 diabetes mellitus without complications; I50.9 Heart failure, unspecified; N28.9 Disorder of kidney and ureter, unspecified; Z79.899 Other long term (current) drug therapy; Z85.528 Personal history of other malignant neoplasm of kidney; Z90.5 Acquired absence of kidney; Z79.84 Long term (current) use of oral hypoglycemic drugs; Z79.01 Long term (current) use of anticoagulants; Z79.02 Long term (current) use of antithrombotics/antiplatelets

== ENCOUNTER 2019-04-04 15:53 | Inpatient (IN) | payer OTHER | END 2019-04-06 13:30 | disposition home or self-care (01) | LOC: F2W 15:53 ==

== ENCOUNTER 2019-04-09 07:12 | Observation (INO) | payer OTHER | END 2019-04-10 12:34 | disposition home or self-care (01) | LOC: FCATH 07:12 → F2W 11:38 ==